=== PATIENT | male | born 1955 | race Hispanic/Latino ===

== ENCOUNTER 2016-12-09 08:35 | Inpatient (IN) | payer MEDICARE ==
[2016-12-09] MEDS ORDERED: ATIVAN ONE (08:51)
[2016-12-09] MEDS ORDERED: KEPPRA 1,000 MG/NS 0.75% 100ML 1,000 MG/100 ML BAG IV ONE ×2 (09:07→09:30)
[2016-12-09] MEDS ORDERED: NACL 0.9% 1000 ML 1,000 ML ONE ×2 (09:12→12:06)
[2016-12-09] MEDS ORDERED: ATIVAN IV ONE (09:15)
[2016-12-09] MEDS ORDERED: NACL 0.9% 1000 ML 1,000 ML IV ONE ×2 (09:30→11:12)
--- NOTE | 2016-12-09 10:09 | XRay Report ---
AP CHEST: HISTORY: Hypertension AP view of the chest demonstrates a normal mediastinal and cardiac contour with clear lungs and normal bony and soft tissue structures. No significant change since 08/17/16. IMPRESSION: Unremarkable AP chest.
--- NOTE | 2016-12-09 10:32 | Cat Scan Report ---
CT HEAD WITHOUT CONTRAST: HISTORY: Recurrent seizure. Chronic cortical infarct in the right posterior temporal lobe measures 2.5 x 2.5 cm. The remaining brain parenchyma demonstrates normal attenuation. The whaley-white interface is unremarkable. No evidence for hemorrhage, mass or hydrocephalus. The mastoid air cells and visualized portions of the sinuses are normal. IMPRESSION: No acute intracranial process. Chronic infarct in the right temporal lobe.
[2016-12-09 10:35] LABS: Basophils % (Auto) 0.4 % (0.0-1.8); Eosinophils % (Auto) 0.2 % (0.0-4.3); Hematocrit 49.4 % (35.5-45.6); Hemoglobin 16.6 gm/dl (11.8-15.2); Mean Corpuscular HGB Conc 34 % (32-34); Mean Corpuscular Hemoglobin 31 pg (28-32); Mean Corpuscular Volume 91 fl (84-94); Platelet Count 172 K/mm3 (140-440); Red Cell Distribution Width 14.5 % (13.2-15.2)
[2016-12-09 10:38] LABS: Alanine Aminotransferase 17 units/L (7-56); Albumin 4.8 g/dL (3.9-5); Albumin/Globulin Ratio 1.4 %; Alkaline Phosphatase 103 units/L (35-129); Anion Gap 29 mmol/L; BUN/Creatinine Ratio 14.61; Blood Urea Nitrogen 19 mg/dL (9-20); Carbon Dioxide 15 mmol/L (22-30); Chloride 99.6 mmol/L (98-107); Glucose 123 mg/dL (75-100); Potassium 4.4 mmol/L (3.6-5.0); Sodium 139 mmol/L (137-145); Total Protein 8.3 g/dL (6.3-8.2)
--- NOTE | 2016-12-09 10:43 | Emergency Department Report ---
ED Seizure HPI - General Chief Complaint: Seizure Stated Complaint: SEIZURES Time Seen by Provider: 12/09/16 09:29 Source: family, EMS Mode of arrival: Stretcher Limitations: No Limitations - History of Present Illness Initial Comments: The patient had a seizure at home. He is currently on Keppra 750 mg twice a day according to his previous reconciliation. His compliance is unknown. [facility] he had an additional seizure. He was given a milligram of Ativan IV prior to my arrival. On my initial encounter he is lethargic but arousable. He is able to tell me his name. His blood pressure was somewhat low and his heart rate was in the 130s (sinus tachycardia). His pulse oximetry was well maintained and he was managing his airway fine. The patient presents with a family member who states that he had a case of the "swine flu" and was hospitalized for 26 days. She denies any ongoing liver or kidney problem. He does have a history of prior seizures as above. He has not recently been ill to her knowledge nor febrile. MD Complaint: seizure -: Sudden Description of Episode: loss of consciousness, tonic-clonic movement -: minutes(s) Witnessed:: Yes Trauma: No (family member states the patient was held during the seizure and did not soto) Seizure History: known seizure disorder Place: home, other (and again here) Possible Precipitating Event: other (none known) Associated Symptoms: denies other symptoms (not per family) - Related Data Home Medications Medication Instructions Recorded Confirmed Last Taken cloNIDine [Catapres] 0.1 mg PO BID 08/21/14 08/17/16 12/06/14 0.1 MG levETIRAcetam [Keppra TAB] 750 mg PO BID 08/21/14 08/17/16 12/06/14 500 MG Terazosin HCl 5 mg PO HS 08/17/16 08/17/16 Unknown traZODone [Desyrel] 2 tab PO HS 08/17/16 08/17/16 Unknown Previous Rx's Medication Instructions Recorded Last Taken Type Aspirin [Aspirin BABY CHEW TAB] 81 mg PO QDAY #30 tab.chew 08/18/16 Unknown Rx Allergies Allergy/AdvReac Type Severity Reaction Status Date / Time haloperidol [From Haldol] Allergy Unknown Verified 12/09/16 09:16 haloperidol lactate Allergy Unknown Verified 12/09/16 09:16 [From Haldol] levofloxacin [From Levaquin] Allergy Unknown Verified 12/09/16 09:16 quetiapine fumarate Allergy Unknown Verified 12/09/16 09:16 [From Seroquel] Penicillins AdvReac Hives Verified 12/09/16 09:16 ED Review of Systems ROS: Stated complaint: SEIZURES Other details as noted in HPI Comment: Unobtainable due to pts medical conditions ED Past Medical Hx - Past Medical History Previous Medical History?: Yes Hx Hypertension: Yes (2009) Hx CVA: Yes (2011) Hx Congestive Heart Failure: No Hx Diabetes: No Hx Renal Disease: Yes (Prostate) Hx Arthritis: Yes (BACK, NECK SHOULDER) Hx Seizures: Yes (2009, PER PATIENT LAST WAS 2009) Hx Kidney Stones: Yes (X6 OCCURANCES) Hx Asthma: No Hx COPD: No Additional medical history: Chronic back pain, pressure ulcer on left heel, torn tendons in right shoulder. - Surgical History Past Surgical History?: Yes Additional Surgical History: Back surgeries (C5,6,&7), hernia repair, orchiectomy, spinal stimulator with subsequent removal. - Social History Smoking Status: Current Every Day Smoker Substance Use Type: None - Medications Home Medications: Home Medications Medication Instructions Recorded Confirmed Last Taken Type cloNIDine [Catapres] 0.1 mg PO BID 08/21/14 08/17/16 12/06/14 History 0.1 MG levETIRAcetam [Keppra TAB] 750 mg PO BID 08/21/14 08/17/16 12/06/14 History 500 MG Terazosin HCl 5 mg PO HS 08/17/16 08/17/16 Unknown History traZODone [Desyrel] 2 tab PO HS 08/17/16 08/17/16 Unknown History Aspirin [Aspirin BABY CHEW TAB] 81 mg PO QDAY #30 tab.chew 08/18/16 Unknown Rx ED Physical Exam - General Limitations: Altered Mental Status General appearance: alert, in no apparent distress, lethargic, postictal - Head Head exam: Present: atraumatic, normocephalic - Eye Eye exam: Present: normal appearance, PERRL, EOMI. Absent: scleral icterus - ENT ENT exam: Present: normal exam, mucous membranes moist - Neck Neck exam: Present: normal inspection. Absent: tenderness, meningismus - Respiratory Respiratory exam: Present: normal lung sounds bilaterally. Absent: respiratory distress - Cardiovascular Cardiovascular Exam: Present: normal rhythm, tachycardia. Absent: systolic murmur, diastolic murmur, rubs, gallop - GI/Abdominal GI/Abdominal exam: Present: soft, normal bowel sounds. Absent: distended, tenderness, guarding, rebound - Rectal Rectal exam: Present: deferred - Extremities Exam Extremities exam: Present: normal inspection - Back Exam Back exam: Present: normal inspection - Neurological Exam Neurological exam: Present: alert, oriented X3, CN II-XII intact. Absent: motor sensory deficit - Psychiatric Psychiatric exam: Present: normal affect, normal mood - Skin Skin exam: Present: warm, dry, intact, normal color. Absent: rash ED Course Vital Signs 12/09/16 12/09/16 09:04 09:17 Temperature 98.1 F 98.1 F Pulse Rate 133 H 133 H Respiratory 16 16 Rate Blood Pressure 87/53 Blood Pressure 87/53 [Left] O2 Sat by Pulse 98 97 Oximetry - Reevaluation(s) Reevaluation #1: Patient was given IV fluids with improvement of his blood pressure and heart rate. He became more arousable. He managed his airway fine. 12/09/16 11:12 12/09/16 11:13 The patient was noted to have lactic acidosis increased anion gap. This is presumed to be secondary to his seizures but blood cultures were obtained. I discussed this with the hospitalist Dr. Velasco. He is clinically improved. Personally I do not think he yet meets criteria for empiric antibiotics. I will order a repeat lactic acid level now to verify this. A chest x-ray and CT of the head showed nothing acute. Patient will be admitted to telemetry for further care and management by the hospitalist service. ED Medical Decision Making - Lab Data Result diagrams: 12/09/16 09:52 12/09/16 09:52 Laboratory Results - last 24 hr 12/09/16 12/09/16 12/09/16 09:52 09:52 09:52 WBC 10.0 RBC 5.40 H Hgb 16.6 H Hct 49.4 H MCV 91 MCH 31 MCHC 34 RDW 14.5 Plt Count 172 Lymph % (Auto) 5.7 L [place] % (Auto) 5.6 Eos % (Auto) 0.2 Baso % (Auto) 0.4 Lymph # 0.6 L [place] # 0.6 Eos # 0.0 Baso # 0.0 Seg Neutrophils % 88.1 H Seg Neutrophils # 8.8 H Carbon Dioxide 15 L BUN 19 Creatinine 1.3 Estimated GFR 57 BUN/Creatinine Ratio 14.61 Glucose 123 H Calcium 9.0 Total Bilirubin 0.70 ALT 17 Alkaline Phosphatase 103 Ammonia 73.0 H Total Protein 8.3 H Albumin 4.8 Albumin/Globulin Ratio 1.4 NA 130 K 4.4 CL 99.6 AG 29 LA 8.5 - EKG Data -: EKG Interpreted by Me EKG shows normal: sinus rhythm, axis, intervals, QRS complexes, ST-T waves Rate: tachycardia - EKG Data Interpretation: no acute changes - Radiology Data Radiology results: report reviewed interpreted by me: Previous chronic left temporal infarct. No acute process. Chest x-ray no acute process. Critical Care Time: Yes Critical care time in (mins) excluding proc time.: 40 Critical care attestation.: If time is entered above; I have spent that time in minutes in the direct care of this critically ill patient, excluding procedure time. ED Disposition Clinical Impression: Recurrent seizures, Hypotensive episode, Lactic acidosis Disposition: DC-09 OP ADMIT IP TO THIS HOSP Is pt being admited?: Yes Does the pt Need Aspirin: Yes Condition: Stable Referrals: PRIMARY CARE, [Primary Care Provider] - 3-5 Days Time of Disposition: 11:17
[2016-12-09 10:48] LABS: Bilirubin,Direct < 0.2 mg/dL (0-0.2)
[2016-12-09] MEDS ORDERED: BABY ASPIRIN PO ONE (11:18)
--- NOTE | 2016-12-09 12:24 | History and Physical Report ---
History of Present Illness Date of examination: 12/09/16 Date of admission: 12/09/16 11:35 Chief complaint: sz History of present illness: This is a 61-year-old male who presents to the emergency department with a known seizure disorder status post seizure 2. Patient reportedly had a seizure at home and later developed a second seizure in the emergency room. Patient is somewhat lethargic and postictal. Therefore, most of the history was obtained from the ER record. Patient reportedly was given Ativan as well. Past History Past Medical History: seizures Past Surgical History: Other (neck, rotator cuff surgery, fluid, continue, testicle removal) Social history: other (unable to be obtained due to mental status) Family history: other (unable to be obtained due to mental status) Medications and Allergies Allergies Allergy/AdvReac Type Severity Reaction Status Date / Time haloperidol [From Haldol] Allergy Unknown Verified 12/09/16 09:16 haloperidol lactate Allergy Unknown Verified 12/09/16 09:16 [From Haldol] levofloxacin [From Levaquin] Allergy Unknown Verified 12/09/16 09:16 quetiapine fumarate Allergy Unknown Verified 12/09/16 09:16 [From Seroquel] Penicillins AdvReac Hives Verified 12/09/16 09:16 Home Medications Medication Instructions Recorded Confirmed Last Taken Type cloNIDine [Catapres] 0.1 mg PO BID 08/21/14 08/17/16 12/06/14 History 0.1 MG levETIRAcetam [Keppra TAB] 750 mg PO BID 08/21/14 08/17/16 12/06/14 History 500 MG Terazosin HCl 5 mg PO HS 08/17/16 08/17/16 Unknown History traZODone [Desyrel] 2 tab PO HS 08/17/16 08/17/16 Unknown History Aspirin [Aspirin BABY CHEW TAB] 81 mg PO QDAY #30 tab.chew 08/18/16 Unknown Rx Review of Systems ROS unobtainable: due to mental status Exam - Constitutional Vitals: Temp Pulse Resp BP Pulse Ox 98.1 F 102 H 16 123/84 97 12/09/16 09:17 12/09/16 11:52 12/09/16 11:52 12/09/16 11:52 12/09/16 11:52 General appearance: Present: no acute distress, well-nourished - EENT Eyes: Present: PERRL ENT: hearing intact, clear oral mucosa - Neck Neck: Present: supple, normal ROM - Respiratory Respiratory effort: normal Respiratory: bilateral: CTA - Cardiovascular Heart Sounds: Present: S1 & S2. Absent: rub, click - Extremities Extremities: pulses symmetrical, No edema Peripheral Pulses: within normal limits - Abdominal General gastrointestinal: Present: soft, non-tender, non-distended, normal bowel sounds Male genitourinary: Present: normal - Integumentary Integumentary: Present: clear, warm, dry - Musculoskeletal Musculoskeletal: gait normal, strength equal bilaterally - Psychiatric Psychiatric: appropriate mood/affect, intact judgment & insight - Neurologic Neurologic: CNII-XII intact, moves all extremities Results - Labs CBC & Chem 7: 12/09/16 09:52 12/09/16 09:52 Labs: Laboratory Last Values WBC 10.0 K/mm3 (4.5-11.0) 12/09/16 09:52 RBC 5.40 M/mm3 (3.65-5.03) H 12/09/16 09:52 Hgb 16.6 gm/dl (11.8-15.2) H 12/09/16 09:52 Hct 49.4 % (35.5-45.6) H 12/09/16 09:52 MCV 91 fl (84-94) 12/09/16 09:52 MCH 31 pg (28-32) 12/09/16 09:52 MCHC 34 % (32-34) 12/09/16 09:52 RDW 14.5 % (13.2-15.2) 12/09/16 09:52 Plt Count 172 K/mm3 (140-440) 12/09/16 09:52 Lymph % (Auto) 5.7 % (13.4-35.0) L 12/09/16 09:52 [place] % (Auto) 5.6 % (0.0-7.3) 12/09/16 09:52 Eos % (Auto) 0.2 % (0.0-4.3) 12/09/16 09:52 Baso % (Auto) 0.4 % (0.0-1.8) 12/09/16 09:52 Lymph # 0.6 K/mm3 (1.2-5.4) L 12/09/16 09:52 [place] # 0.6 K/mm3 (0.0-0.8) 12/09/16 09:52 Eos # 0.0 K/mm3 (0.0-0.4) 12/09/16 09:52 Baso # 0.0 K/mm3 (0.0-0.1) 12/09/16 09:52 Seg Neutrophils % 88.1 % (40.0-70.0) H 12/09/16 09:52 Seg Neutrophils # 8.8 K/mm3 (1.8-7.7) H 12/09/16 09:52 Carbon Dioxide 15 mmol/L (22-30) L 12/09/16 09:52 BUN 19 mg/dL (9-20) 12/09/16 09:52 Creatinine 1.3 mg/dL (0.8-1.5) 12/09/16 09:52 Estimated GFR 57 ml/min 12/09/16 09:52 BUN/Creatinine Ratio 14.61 % 12/09/16 09:52 Glucose 123 mg/dL (75-100) H 12/09/16 09:52 Lactic Acid 8.50 mmol/L (0.7-2.0) H* 12/09/16 09:52 Calcium 9.0 mg/dL (8.4-10.2) 12/09/16 09:52 Total Bilirubin 0.70 mg/dL (0.1-1.2) 12/09/16 09:52 Direct Bilirubin < 0.2 mg/dL (0-0.2) 12/09/16 09:52 AST 17 units/L (5-40) 12/09/16 09:52 ALT 17 units/L (7-56) 12/09/16 09:52 Alkaline Phosphatase 103 units/L (35-129) 12/09/16 09:52 Ammonia 73.0 umol/L (25-60) H 12/09/16 09:52 Troponin T < 0.010 ng/mL (0.00-0.029) 12/09/16 09:52 NT-Pro-B Natriuret Pep 155.2 pg/mL (0-900) 12/09/16 09:52 Total Protein 8.3 g/dL (6.3-8.2) H 12/09/16 09:52 Albumin 4.8 g/dL (3.9-5) 12/09/16 09:52 Albumin/Globulin Ratio 1.4 % 12/09/16 09:52 Plasma/Serum Alcohol < 0.01 gm% (0-0.07) 12/09/16 09:52 Assessment and Plan Assessment and plan: Seizure disorder. Continue seizure precautions. Check EEG. Neurology consultation. Continue IV Keppra. Elevated lactic acid level. ? Lab error. Follow-up repeat lactic acid level. Etiology may also be secondary to #1. There appears to be no evidence of infectious etiology.
[2016-12-09] MEDS ORDERED: MILK OF MAGNESIA PO PRN (12:25)
[2016-12-09] MEDS ORDERED: DULCOLAX PR PRN (12:25)
[2016-12-09] MEDS ORDERED: ZOFRAN IV PRN (12:25)
[2016-12-09 14:48] LABS: Urine Drugs of Abuse Note Disclamer
[2016-12-09 15:08] LABS: Bilirubin,Urine NEG (Negative); Blood,Urine SM (Negative); Ketones,Urine NEG (Negative); Leukocyte Esterase,Urine NEG (Negative); Mucus,Urine FEW /HPF; Nitrite,Urine NEG (Negative); Urobilinogen,Urine < 2.0 mg/dL (<2.0)
[2016-12-09] MEDS: TYLENOL PO PRN (23:17)
--- NOTE | 2016-12-10 02:47 | Admit Criteria Form ---
Admission Criteria Documentation: SEIZURE Clinical Indications for Admission to Inpatient Care (Place 'X' for any and all applicable criteria): Admission is indicated for seizure and ANY ONE of the following(1)(2)(3)(4)(5): [ X]I. Inpatient admission required rather than observation care (Also use Seizure: Observation Care Criteria as appropriate) because of ANY ONE of the following: [ ]a) Altered mental status that is severe or persistent [ ]b) New focal neurologic deficit that is severe or persistent [ ]c) Metabolic disorder (eg, hypoglycemia, hyponatremia) that is severe or persistent [ X]d) Recurrent seizure [ ]e) Outpatient antiseizure regimen cannot be established (eg , patient cannot tolerate medication, initiation requires inpatient care) [ ]f) Need for ongoing intravenous infusion of antiseizure medication [ ]g) Cardiac arrhythmias of immediate concern [ ]h) Cerebral bleeding, hydrocephalus, or vasospasm monitoring (14) [ ]i) Increased intracranial pressure or cerebral edema monitoring (15) [ ]j) Other treatment or monitoring requiring inpatient admission [ ]II. Status epilepticus [A] or repetitive seizures not controlled with emergent treatment (6)(8) [ ]III. Brain disorder (eg, tumor, edema, and hydrocephalus) that requiring monitoring or intervention available only at inpatient level of care. [ ]IV. Brain insult (eg, severe trauma, stroke, drug toxicity, or withdrawal) that requires monitoring or intervention available only at inpatient level of care (10)(11) Extended stay beyond goal length of stay may be needed for (22) [ ]a) Complications of status epilepticus [ ]b) Refractory status epilepticus [ ]c) Etiology-specific therapy for conditions such as [employer] infection, head injury,eclampsia, severe metabolic abnormalities, and brain tumor [ ]d) Residual neurologic damage, [ ]e) Initiation of significant change to anticonvulsant treatment [ ]f) Older patients (65 years or older) [ ]g) Patient requiring intubation (eg, to protect airway) The original [facility] content created by [employer] has been revised. The portions of the content which have been revised are identified through the use of italic text or in bold, and [facility] [employer] has neither reviewed nor approved the modified material. All other unmodified content is copyright [facility] [employer]. Please see references footnoted in the original [facility] edition 2016 Admission Criteria Met: Yes
[2016-12-10] MEDS: ATIVAN IV PRN ×2 (05:06→16:05)
[2016-12-10] MEDS: TYLENOL PO PRN (05:15)
[2016-12-10 05:49] LABS: Basophils % (Auto) 0.4 % (0.0-1.8); Eosinophils % (Auto) 1.3 % (0.0-4.3); Hematocrit 43.8 % (35.5-45.6); Hemoglobin 14.9 gm/dl (11.8-15.2); Mean Corpuscular HGB Conc 34 % (32-34); Mean Corpuscular Hemoglobin 31 pg (28-32); Mean Corpuscular Volume 91 fl (84-94); Platelet Count 150 K/mm3 (140-440); Red Blood Count 4.83 M/mm3 (3.65-5.03); Red Cell Distribution Width 14.6 % (13.2-15.2); White Blood Count 10.3 K/mm3 (4.5-11.0)
[2016-12-10 06:10] LABS: Anion Gap 21 mmol/L; BUN/Creatinine Ratio 18.18; Blood Urea Nitrogen 20 mg/dL (9-20); Calcium 8.5 mg/dL (8.4-10.2); Carbon Dioxide 19 mmol/L (22-30); Chloride 105.6 mmol/L (98-107); Glucose 107 mg/dL (75-100); Sodium 142 mmol/L (137-145)
[2016-12-10 06:11] LABS: Potassium 3.5 mmol/L (3.6-5.0)
[2016-12-10] MEDS: LOVENOX SUB-Q SCH (09:47)
--- NOTE | 2016-12-10 12:34 | Progress Note ---
Assessment and Plan Assessment and plan: Seizure disorder. Continue seizure precautions. Check EEG. Neurology consultation. Continue IV Keppra. Check Keppra level. Elevated lactic acid level. ? Lab error. Follow-up repeat lactic acid level. Etiology may also be secondary to #1. There appears to be no evidence of infectious etiology. Encephalopathy. Etiology may be secondary to #1. Rule out other etiologies such as infection. Blood cultures appear to be negative. Check TSH and ammonia levels. Patient unable to undergo MRI due to hardware from previous back and neck surgeries. History Interval history: No new issues overnight. Hospitalist Physical - Constitutional Vitals: Temp Pulse Resp BP Pulse Ox 99.1 F 114 H 18 125/76 93 12/10/16 11:56 12/10/16 11:56 12/10/16 11:56 12/10/16 11:56 12/10/16 11:56 General appearance: Present: no acute distress, well-nourished - EENT Eyes: Present: PERRL, EOM intact ENT: hearing intact, clear oral mucosa, dentition normal - Neck Neck: Present: supple, normal ROM - Respiratory Respiratory effort: normal Respiratory: bilateral: CTA - Cardiovascular Rhythm: regular Heart Sounds: Present: S1 & S2. Absent: gallop, rub - Extremities Extremities: no ischemia, No edema, Full ROM - Abdominal General gastrointestinal: soft, non-tender, non-distended, normal bowel sounds - Integumentary Integumentary: Present: clear, warm, dry - Neurologic Neurologic: CNII-XII intact, moves all extremities Results - Labs CBC & Chem 7: 12/10/16 05:24 12/10/16 05:24 Labs: Laboratory Last Values WBC 10.3 K/mm3 (4.5-11.0) 12/10/16 05:24 RBC 4.83 M/mm3 (3.65-5.03) 12/10/16 05:24 Hgb 14.9 gm/dl (11.8-15.2) 12/10/16 05:24 Hct 43.8 % (35.5-45.6) 12/10/16 05:24 MCV 91 fl (84-94) 12/10/16 05:24 MCH 31 pg (28-32) 12/10/16 05:24 MCHC 34 % (32-34) 12/10/16 05:24 RDW 14.6 % (13.2-15.2) 12/10/16 05:24 Plt Count 150 K/mm3 (140-440) 12/10/16 05:24 Lymph % (Auto) 13.5 % (13.4-35.0) 12/10/16 05:24 [place] % (Auto) 9.6 % (0.0-7.3) H 12/10/16 05:24 Eos % (Auto) 1.3 % (0.0-4.3) 12/10/16 05:24 Baso % (Auto) 0.4 % (0.0-1.8) 12/10/16 05:24 Lymph # 1.4 K/mm3 (1.2-5.4) 12/10/16 05:24 Major # 1.0 K/mm3 (0.0-0.8) H 12/10/16 05:24 Eos # 0.1 K/mm3 (0.0-0.4) 12/10/16 05:24 Baso # 0.0 K/mm3 (0.0-0.1) 12/10/16 05:24 Seg Neutrophils % 75.2 % (40.0-70.0) H 12/10/16 05:24 Seg Neutrophils # 7.8 K/mm3 (1.8-7.7) H 12/10/16 05:24 Sodium 142 mmol/L (137-145) 12/10/16 05:24 Potassium 3.5 mmol/L (3.6-5.0) L D 12/10/16 05:24 Chloride 105.6 mmol/L (98-107) 12/10/16 05:24 Carbon Dioxide 19 mmol/L (22-30) L 12/10/16 05:24 Anion Gap 21 mmol/L 12/10/16 05:24 BUN 20 mg/dL (9-20) 12/10/16 05:24 Creatinine 1.1 mg/dL (0.8-1.5) 12/10/16 05:24 Estimated GFR > 60 ml/min 12/10/16 05:24 BUN/Creatinine Ratio 18.18 % 12/10/16 05:24 Glucose 107 mg/dL (75-100) H 12/10/16 05:24 POC Glucose 112 (70-105) H 12/09/16 11:56 Lactic Acid 2.00 mmol/L (0.7-2.0) 12/09/16 12:56 Calcium 8.5 mg/dL (8.4-10.2) 12/10/16 05:24 Magnesium 1.80 mg/dL (1.7-2.3) 12/09/16 09:52 Total Bilirubin 0.70 mg/dL (0.1-1.2) 12/09/16 09:52 Direct Bilirubin < 0.2 mg/dL (0-0.2) 12/09/16 09:52 AST 17 units/L (5-40) 12/09/16 09:52 ALT 17 units/L (7-56) 12/09/16 09:52 Alkaline Phosphatase 103 units/L (35-129) 12/09/16 09:52 Ammonia 73.0 umol/L (25-60) H 12/09/16 09:52 Troponin T < 0.010 ng/mL (0.00-0.029) 12/09/16 09:52 NT-Pro-B Natriuret Pep 155.2 pg/mL (0-900) 12/09/16 09:52 Total Protein 8.3 g/dL (6.3-8.2) H 12/09/16 09:52 Albumin 4.8 g/dL (3.9-5) 12/09/16 09:52 Albumin/Globulin Ratio 1.4 % 12/09/16 09:52 Urine Color Yellow (Yellow) 12/09/16 14:20 Urine Turbidity Clear (Clear) 12/09/16 14:20 Urine pH 5.0 (5.0-7.0) 12/09/16 14:20 Ur Specific [place] 1.010 (1.003-1.030) 12/09/16 14:20 Urine Protein 30 mg/dl mg/dL (Negative) 12/09/16 14:20 Urine Glucose (UA) Neg mg/dL (Negative) 12/09/16 14:20 Urine Ketones Neg mg/dL (Negative) 12/09/16 14:20 Urine Blood Sm (Negative) 12/09/16 14:20 Urine Nitrite Neg (Negative) 12/09/16 14:20 Urine Bilirubin Neg (Negative) 12/09/16 14:20 Urine Urobilinogen < 2.0 mg/dL (<2.0) 12/09/16 14:20 Ur Leukocyte Esterase Neg (Negative) 12/09/16 14:20 Urine WBC (Auto) 2.0 /HPF (0.0-6.0) 12/09/16 14:20 Urine RBC (Auto) 5.0 /HPF (0.0-6.0) 12/09/16 14:20 U Epithel Cells (Auto) < 1.0 /HPF (0-13.0) 12/09/16 14:20 Urine Mucus Few /HPF 12/09/16 14:20 Urine Opiates Screen Presumptive negative 12/09/16 14:20 Urine Methadone Screen Presumptive negative 12/09/16 14:20 Ur Barbiturates Screen Presumptive negative 12/09/16 14:20 Ur Phencyclidine Scrn Presumptive negative 12/09/16 14:20 Ur Amphetamines Screen Presumptive negative 12/09/16 14:20 U Benzodiazepines Scrn Presumptive negative 12/09/16 14:20 Urine Cocaine Screen Presumptive negative 12/09/16 14:20 U Marijuana (THC) Screen Presumptive negative 12/09/16 14:20 Drugs of Abuse Note Disclamer 12/09/16 14:20 Plasma/Serum Alcohol < 0.01 gm% (0-0.07) 12/09/16 09:52
[2016-12-10] MEDS ORDERED: NON-FORMULARY (Terazosin Hcl [Terazosin Hcl] 5 MG) PO SCH (22:00)
[2016-12-10] MEDS: MINIPRESS PO SCH (22:03)
[2016-12-10] MEDS: KEPPRA 750 MG in D5W 100 ML IV SCH (22:11)
[2016-12-10] MEDS: CATAPRES PO SCH (22:30)
[2016-12-10] MEDS: DESYREL PO SCH (22:30)
[2016-12-11] MEDS: LOVENOX SUB-Q SCH (10:15)
[2016-12-11] MEDS: KEPPRA 750 MG in D5W 100 ML IV SCH (10:16)
[2016-12-11] MEDS: MINIPRESS PO SCH ×2 (10:17→21:04)
[2016-12-11] MEDS: CATAPRES PO SCH ×2 (10:17→23:00)
[2016-12-11] MEDS: BABY ASPIRIN PO SCH (10:17)
--- NOTE | 2016-12-11 11:30 | Progress Note ---
Assessment and Plan Assessment and plan: Seizure disorder. Continue seizure precautions. Check EEG. Neurology consultation. Continue IV Keppra. Check Keppra level. Elevated lactic acid level. ? Lab error. Follow-up repeat lactic acid level. Etiology may also be secondary to #1. There appears to be no evidence of infectious etiology. Urine and blood cultures are negative thus far. Encephalopathy. Etiology may be secondary to #1. Rule out other etiologies such as infection. Blood cultures appear to be negative. Check TSH and ammonia levels. Patient unable to undergo MRI due to hardware from previous back and neck surgeries. Hypertension. Continue clonidine and terazosin Presyncope. Check carotid ultrasound and orthostatic vital signs.. History Interval history: No new issues overnight. Patient appears to be less confused this morning. Mother at bedside. Patient also complains of dizziness when sitting up in bed. Hospitalist Physical - Constitutional Vitals: Temp Pulse Resp BP Pulse Ox 97.9 F 91 H 20 129/89 97 12/11/16 08:00 12/11/16 08:00 12/11/16 08:00 12/11/16 08:00 12/11/16 08:00 General appearance: Present: no acute distress, well-nourished - EENT Eyes: Present: PERRL, EOM intact ENT: hearing intact, clear oral mucosa, dentition normal - Neck Neck: Present: supple, normal ROM - Respiratory Respiratory effort: normal Respiratory: bilateral: CTA - Cardiovascular Rhythm: regular Heart Sounds: Present: S1 & S2. Absent: gallop, rub - Extremities Extremities: no ischemia, No edema, Full ROM - Abdominal General gastrointestinal: soft, non-tender, non-distended, normal bowel sounds - Integumentary Integumentary: Present: clear, warm, dry - Neurologic Neurologic: CNII-XII intact, moves all extremities Results - Labs CBC & Chem 7: 12/10/16 05:24 12/10/16 05:24 Labs: Laboratory Last Values WBC 10.3 K/mm3 (4.5-11.0) 12/10/16 05:24 RBC 4.83 M/mm3 (3.65-5.03) 12/10/16 05:24 Hgb 14.9 gm/dl (11.8-15.2) 12/10/16 05:24 Hct 43.8 % (35.5-45.6) 12/10/16 05:24 MCV 91 fl (84-94) 12/10/16 05:24 MCH 31 pg (28-32) 12/10/16 05:24 MCHC 34 % (32-34) 12/10/16 05:24 RDW 14.6 % (13.2-15.2) 12/10/16 05:24 Plt Count 150 K/mm3 (140-440) 12/10/16 05:24 Lymph % (Auto) 13.5 % (13.4-35.0) 12/10/16 05:24 [place] % (Auto) 9.6 % (0.0-7.3) H 12/10/16 05:24 Eos % (Auto) 1.3 % (0.0-4.3) 12/10/16 05:24 Baso % (Auto) 0.4 % (0.0-1.8) 12/10/16 05:24 Lymph # 1.4 K/mm3 (1.2-5.4) 12/10/16 05:24 [place] # 1.0 K/mm3 (0.0-0.8) H 12/10/16 05:24 Eos # 0.1 K/mm3 (0.0-0.4) 12/10/16 05:24 Baso # 0.0 K/mm3 (0.0-0.1) 12/10/16 05:24 Seg Neutrophils % 75.2 % (40.0-70.0) H 12/10/16 05:24 Seg Neutrophils # 7.8 K/mm3 (1.8-7.7) H 12/10/16 05:24 Sodium 142 mmol/L (137-145) 12/10/16 05:24 Potassium 3.5 mmol/L (3.6-5.0) L D 12/10/16 05:24 Chloride 105.6 mmol/L (98-107) 12/10/16 05:24 Carbon Dioxide 19 mmol/L (22-30) L 12/10/16 05:24 Anion Gap 21 mmol/L 12/10/16 05:24 BUN 20 mg/dL (9-20) 12/10/16 05:24 Creatinine 1.1 mg/dL (0.8-1.5) 12/10/16 05:24 Estimated GFR > 60 ml/min 12/10/16 05:24 BUN/Creatinine Ratio 18.18 % 12/10/16 05:24 Glucose 107 mg/dL (75-100) H 12/10/16 05:24 POC Glucose 112 (70-105) H 12/09/16 11:56 Lactic Acid 2.00 mmol/L (0.7-2.0) 12/09/16 12:56 Calcium 8.5 mg/dL (8.4-10.2) 12/10/16 05:24 Magnesium 1.80 mg/dL (1.7-2.3) 12/09/16 09:52 Total Bilirubin 0.70 mg/dL (0.1-1.2) 12/09/16 09:52 Direct Bilirubin < 0.2 mg/dL (0-0.2) 12/09/16 09:52 AST 17 units/L (5-40) 12/09/16 09:52 ALT 17 units/L (7-56) 12/09/16 09:52 Alkaline Phosphatase 103 units/L (35-129) 12/09/16 09:52 Ammonia 43.0 umol/L (25-60) 12/10/16 13:17 Troponin T < 0.010 ng/mL (0.00-0.029) 12/09/16 09:52 NT-Pro-B Natriuret Pep 155.2 pg/mL (0-900) 12/09/16 09:52 Total Protein 8.3 g/dL (6.3-8.2) H 12/09/16 09:52 Albumin 4.8 g/dL (3.9-5) 12/09/16 09:52 Albumin/Globulin Ratio 1.4 % 12/09/16 09:52 TSH 3.350 mlU/mL (0.270-4.200) 12/10/16 13:17 Urine Color Yellow (Yellow) 12/09/16 14:20 Urine Turbidity Clear (Clear) 12/09/16 14:20 Urine pH 5.0 (5.0-7.0) 12/09/16 14:20 Ur Specific [place] 1.010 (1.003-1.030) 12/09/16 14:20 Urine Protein 30 mg/dl mg/dL (Negative) 12/09/16 14:20 Urine Glucose (UA) Neg mg/dL (Negative) 12/09/16 14:20 Urine Ketones Neg mg/dL (Negative) 12/09/16 14:20 Urine Blood Sm (Negative) 12/09/16 14:20 Urine Nitrite Neg (Negative) 12/09/16 14:20 Urine Bilirubin Neg (Negative) 12/09/16 14:20 Urine Urobilinogen < 2.0 mg/dL (<2.0) 12/09/16 14:20 Ur Leukocyte Esterase Neg (Negative) 12/09/16 14:20 Urine WBC (Auto) 2.0 /HPF (0.0-6.0) 12/09/16 14:20 Urine RBC (Auto) 5.0 /HPF (0.0-6.0) 12/09/16 14:20 U Epithel Cells (Auto) < 1.0 /HPF (0-13.0) 12/09/16 14:20 Urine Mucus Few /HPF 12/09/16 14:20 Urine Opiates Screen Presumptive negative 12/09/16 14:20 Urine Methadone Screen Presumptive negative 12/09/16 14:20 Ur Barbiturates Screen Presumptive negative 12/09/16 14:20 Ur Phencyclidine Scrn Presumptive negative 12/09/16 14:20 Ur Amphetamines Screen Presumptive negative 12/09/16 14:20 U Benzodiazepines Scrn Presumptive negative 12/09/16 14:20 Urine Cocaine Screen Presumptive negative 12/09/16 14:20 U Marijuana (THC) Screen Presumptive negative 12/09/16 14:20 Drugs of Abuse Note Disclamer 12/09/16 14:20 Plasma/Serum Alcohol < 0.01 gm% (0-0.07) 12/09/16 09:52
--- NOTE | 2016-12-11 11:42 | Consultation ---
History of Present Illness Consult date: 12/11/16 Requesting physician: MARIELA SANTO Reason for Consult: seizure Chief complaint: seizure History of present illness: 61 YO M hx epilepsy since prolonged coma in 2008 for swine flu/PNA/sepsis on LEV 750mg BID compliant and stroke 2011 w/ residual faint L sided weakness p/w breakthrough GTC on 7 AM and recurrent in ED. Sz lasted ? 1-2 mins. There were no clear aggravating, relieving or temporal factors. Severity was enough to cause LOC and residual confusion which has improved. Past History Past Medical History: seizures, stroke Past Surgical History: Other (neck, rotator cuff surgery, fluid, continue, testicle removal) Social history: lives with family. denies: smoking, alcohol abuse Family history: hypertension Medications and Allergies Allergies Allergy/AdvReac Type Severity Reaction Status Date / Time haloperidol [From Haldol] Allergy Unknown Verified 12/09/16 09:16 haloperidol lactate Allergy Unknown Verified 12/09/16 09:16 [From Haldol] levofloxacin [From Levaquin] Allergy Unknown Verified 12/09/16 09:16 quetiapine fumarate Allergy Unknown Verified 12/09/16 09:16 [From Seroquel] Penicillins AdvReac Hives Verified 12/09/16 09:16 Home Medications Medication Instructions Recorded Confirmed Last Taken Type cloNIDine [Catapres] 0.1 mg PO BID 08/21/14 12/10/16 1 Day Ago History .1 levETIRAcetam [Keppra TAB] 750 mg PO BID 08/21/14 12/10/16 1 Day Ago History 750 Terazosin HCl 5 mg PO HS 08/17/16 12/10/16 1 Day Ago History 5mg traZODone [Desyrel] 2 tab PO HS 08/17/16 12/10/16 Unknown History Aspirin [Aspirin BABY CHEW TAB] 81 mg PO QDAY #30 tab.chew 08/18/16 12/10/16 1 Day Ago Rx 81mg Active Meds: Active Medications Acetaminophen (Tylenol) 650 mg PO Q4H PRN PRN Reason: Pain MILD(1-3)/Fever >100.5/COWART Last Admin: 12/10/16 05:15 Dose: 650 mg Aspirin (Baby Aspirin) 81 mg PO QDAY NIMIS[facility] Last Admin: 12/11/16 10:17 Dose: 81 mg Bisacodyl (Dulcolax) 10 mg SC QDAY PRN PRN Reason: Constipation unrelieved by MOM Clonidine HCl (Catapres) 0.1 mg PO BID [facility] Last Admin: 12/11/16 10:17 Dose: 0.1 mg Enoxaparin Sodium (Lovenox) 40 mg SUB-Q QDAY [facility] Last Admin: 12/10/16 09:47 Dose: 40 mg Levetiracetam 1,000 mg/ (Dextrose) 110 mls @ 400 mls/hr IV Q12HR [facility] Lorazepam (Ativan) 2 mg IV Q4H PRN PRN Reason: Agitation Last Admin: 12/10/16 16:05 Dose: 2 mg Magnesium Hydroxide (Milk Of Magnesia) 30 ml PO Q4H PRN PRN Reason: Constipation Ondansetron HCl (Zofran) 4 mg IV Q8H PRN PRN Reason: N/V unrelieved by Reglan Prazosin HCl (Minipress) 2 mg PO Q12HR [facility] Last Admin: 12/11/16 10:17 Dose: 2 mg Trazodone HCl (Desyrel) 100 mg PO HS [facility] Last Admin: 12/10/16 22:30 Dose: Not Given Review of Systems All systems: negative Constitutional: weakness (generalized) Neurological: weakness (generalized), seizures, syncope, convulsions, confusion , memory loss (since stroke and coma), no parathesias, no numbness, no balance difficulties, no gait dysfunction, no motor disturbance, no sensory deficit, no double vision Physical Examination - Vital Signs Vital Signs: Vital Signs Temp Pulse Resp BP Pulse Ox 98.1 F 133 H 16 87/53 98 12/09/16 09:04 12/09/16 09:04 12/09/16 09:04 12/09/16 09:04 12/09/16 09:04 - Constitutional General appearance: comfortable - EENT EENT: Present: ATNC, PERRL, mucous membranes moist, hearing intact, vision intact - Respiratory Respiratory: Present: chest non-tender, normal breath sounds, no respiratory distress - Cardiovascular Cardiovascular: Present: regular rate Extremities: Present: no peripheral edema bilatateraly, no clubbing, cyanosis, no inflammation, no ischemia or petechiae - Gastrointestinal Gastrointestinal: Present: normoactive bowel sounds, soft, non-distended - Integumentary Integumentary: Present: normal - Neurologic Cranial nerve examination: PERRL, EOMI, VFF, V1/V2/V3 grossly intact, face symmetric, tongue midline, intact, Intact Vestibulo-ocular r, intact corneal reflex, normal palatal elevation, other (faint decreased concentration) Speech examination: intact Sensorimotor examination: intact Detailed motor examination: grossly full strength in, other (faint fine motor L sided weakness) Motor examination - right side: 5/5: biceps, triceps, wrist flexion, wrist extension, curator of photography and prints, hip flexors, knee extensors, dorsiflexion, toe extension (EHL) , plantarflexion Motor examination - left side: 5/5: biceps, triceps, wrist flexion, wrist extension, curator of photography and prints, hip flexors, knee extensors, dorsiflexion, toe extension (EHL) , plantarflexion Detailed sensory examination: intact, light touch, temperature Reflex and gait examination: intact Reflexes: 1+: ankle, 2+: bicep, knee, tricep - Musculoskeletal Musculoskeletal: Present: no fluid collection, no pain, normal range of motion - Psychiatric Psychiatric: Present: mood/affect appropriate, cooperative Results - Laboratory Findings CBC and BMP: 12/10/16 05:24 12/10/16 05:24 Abnormal Lab Findings: Abnormal Labs 12/09/16 12/10/16 12/10/16 11:56 05:24 05:24 [place] % (Auto) 9.6 H [place] # 1.0 H Seg Neutrophils % 75.2 H Seg Neutrophils # 7.8 H Potassium 3.5 L D Carbon Dioxide 19 L Glucose 107 H POC Glucose 112 H Assessment and Plan 61 YO M hx epilepsy since prolonged coma in 2008 for swine flu/PNA/sepsis compliant on LEV 750mg BID and stroke 2011 w/ residual fine motor L sided weakness p/w breakthrough GTC on 12/09 AM and recurrent in ED. On current exam nonfocal beyond residual stroke deficit as above and very mild/faint decreased concentration likely post ictal deficit as markedly improved MS since admission. CTH chronic R temporal infarct. Plan and Recommendation: 1. Telemetry bed w/ Q4 hour neuro checks & Sz precautions 2. Brain imaging: MRI Brain +/- [facility] Seizure Protocol if able to be obtained. ? neck hardware limits MRIs in the past. If imaging unable to be obtained, routine EEG is reasonable. 3. Labs: Serum/Urine Tox, UA/UCx, Electrolytes especially Na, Ca, Mg, and Glucose, TSH/Ammonia and correct as necessary 4. Cont Infectious work up/medical management for UTI, PNA, cellulitis, bacteremia, etc. 5. Avoid hyponatremia, hypo/hyper-calcemia, hypo/hyperglycemia, acidosis, hypoxia/hypoxemia, hypercarbia/hypercapnia 6. Avoid institution of any psychoactive medications (e.g. antihistamines, anticholinergics, BZD, hypnotics, opiates) as able unless low doses of low potency antipsychotic needed for behavioral issues complicating medical care 7. AED therapy: Continue Keppra but increase to 1000mg BID 8. Avoid meds that can lower sz threshold e.g. Tramadol, fluroquinolones, carbapenems 9. If Hx obtained to suggest EtOH dependence, supplement Thiamine, Folate and cont CIWA Protocol 10. Pt advised of [place] driving regulations: report date of presumed Seizure/ unexplained loss of consciousness/awareness spell to [facility], refrain from operating a motor vehicle for 6 months after this date, and avoid unsupervised activity particularly around water or heights 11. Neurologically clear for discharge once resolved fully to baseline w/o recurrent seizure for 24 hrs and above imaging nonacute if able to be obtained. 12. Follow up as outpt with Neurology
[2016-12-11] MEDS: ATIVAN IV PRN (13:28)
[2016-12-11] MEDS: KEPPRA 1,000 MG in D5W 100 ML IV SCH ×2 (13:33→21:04)
[2016-12-11] MEDS: DESYREL PO SCH (21:05)
--- NOTE | 2016-12-11 23:44 | Magnetic Resonance Report ---
FINAL REPORT PROCEDURE: MR BRAIN WO/W CON TECHNIQUE: Magnetic resonance imaging of the brain was performed before and after the IV injection of paramagnetic contrast. HISTORY: AMS COMPARISON: No prior studies are available for comparison. FINDINGS: Diffusion-weighted images failed to demonstrate any hyperintense signal abnormalities. A wedge-shaped irregular area of signal abnormality is noted involving the right parietal lobe measuring 2.4 x 3.1 centimeters involving the whaley and white matter without any mass effect. This is consistent with an area of encephalomalacia. Cerebral sulci and ventricles are otherwise within normal limits. A few small focal signal abnormalities are noted involving the bilateral frontal and left parietal lobe which are of nonspecific nature. There is no evidence of any intracranial hemorrhage. Sella and suprasellar cistern are unremarkable. Cerebellum and brainstem demonstrate normal signal characteristics. Post-contrast images demonstrate a 2 millimeter focal area of contrast enhancement involving the whaley matter of high right parietal lobe without any surrounding mass effect. IMPRESSION: No acute infarct. No intracranial hemorrhage. An irregular area of encephalomalacia involving the right parietal lobe most likely represents an old infarct or hemorrhage. A 2 millimeter focus of contrast enhancement is noted involving a right high parietal gyrus. The etiology is unknown. Clinical correlation and follow-up studies are recommended..
[2016-12-12] MEDS: HABITROL TD SCH ×2 (05:22→09:39)
[2016-12-12] MEDS: TYLENOL PO PRN (05:28)
[2016-12-12] MEDS: ATIVAN IV PRN (05:32)
--- NOTE | 2016-12-12 07:25 | Consultation ---
HISTORY OF PRESENT ILLNESS: This is a 61-year-old white male who has begun to have episodic problems with confusion, loss of consciousness and frankly observed seizure activity. He had been apparently taking some outpatient nerve blocks by an anesthesiologist. Subsequent to some of these, he became more confused, began to experience headaches, had problems with orientation. In the interval, he has had several witnessed seizures by his sister who is in the room speaking with me. There is no prior history of seizures, but he does have a history of significant stroke in 2001 and also has had a history of prior head trauma. He has a longstanding history of tinnitus in both ears, which was related to noise exposure. PHYSICAL EXAMINATION: GENERAL: On my examination, he is alert, appropriate. NECK: Supple. NEUROLOGIC: Speech is clear. Sheet Taker strength is equal. Cranial nerves are intact. Motor and sensory examination unremarkable. He is slightly hard of hearing. He does have good motor tone. No tremors are present. The patient does not have any jerk, no asterixis. 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 There are a number of features including aura, focal onset, and generalized spread. I would recommend probably a combination of medications, Keppra and Tegretol. medications would work best because he is to be on 2 agents and I would recommend getting an EEG. JOB# [id number] ALVARO/NTS
[2016-12-12] MEDS: CATAPRES PO SCH (09:38)
[2016-12-12] MEDS: BABY ASPIRIN PO SCH (09:38)
[2016-12-12] MEDS: LOVENOX SUB-Q SCH (09:39)
[2016-12-12] MEDS: MINIPRESS PO SCH (09:40)
--- NOTE | 2016-12-12 11:53 | Discharge Summary ---
Providers - Providers Date of Admission: 12/09/16 11:35 Attending physician: QUAN RAYMOND MD 12/09/16 12:25 Consult to Physician [CONS] Routine Consulting Provider: MELISSA ALEXANDER Reason For Exam: sz Place consult to:: neuro Notified:: y Time called:: 14:00 Comment:: left message on ext [id number] 12/11/16 11:28 Consult to Physician [CONS] Routine Consulting Provider: AL CABELLO Reason For Exam: sz d/o Place consult to:: neuro Notified:: office Phone number called:: [phone] Was contact made?: Yes Time called:: 11:36 12/11/16 20:13 Consult to Physician [CONS] Routine Consulting Provider: STEPHANIE RUVALCABA Reason For Exam: abnormal heart rhythm Place consult to:: N/A Notified:: N/A Primary care physician: LOGISTICS ANALYST Hospitalization Condition: Stable Disposition: DC-30 STILL A PATIENT Exam - Constitutional Vitals: Temp Pulse Resp BP Pulse Ox 97.4 F L 100 H 22 124/85 97 12/12/16 08:05 12/12/16 08:05 12/12/16 08:05 12/12/16 08:05 12/12/16 08:05 Plan Follow up with: ALEJANDRA MARIANO MD [Primary Care Provider] - 3-5 Days LA CABELLO MD [Staff Physician] - 7 Days Prescriptions: levETIRAcetam [Keppra TAB] 1,000 mg PO BID #60 tablet
[2016-12-12] MEDS: KEPPRA 1,000 MG in D5W 100 ML IV SCH (12:14)
[2016-12-12] MEDS ORDERED: KEPPRA PO SCH (13:00)
--- NOTE | 2016-12-12 13:57 | Consultation ---
History of Present Illness Consult date: 12/12/16 Consult reason: other (Sinus pause) History of present illness: This is a 61yr old with a history of seizure disorder who was admitted 3 days ago with breakthrough seizure. 2 nights ago patient noted a pause of 3.4 seconds on telemetry during sleep. Cardiac consultation requested. Patient denies palpitations, chest pain and shortness of breath. Patient denies dizziness. Laboratory values shows a normal TSH and serum magnesium. Past History Social history: lives with family. denies: smoking, alcohol abuse Family history: hypertension Medications and Allergies Allergies Allergy/AdvReac Type Severity Reaction Status Date / Time haloperidol [From Haldol] Allergy Unknown Verified 12/09/16 09:16 haloperidol lactate Allergy Unknown Verified 12/09/16 09:16 [From Haldol] levofloxacin [From Levaquin] Allergy Unknown Verified 12/09/16 09:16 quetiapine fumarate Allergy Unknown Verified 12/09/16 09:16 [From Seroquel] Penicillins AdvReac Hives Verified 12/09/16 09:16 Home Medications Medication Instructions Recorded Confirmed Last Taken Type cloNIDine [Catapres] 0.1 mg PO BID 08/21/14 12/10/16 1 Day Ago History .1 Terazosin HCl 5 mg PO HS 08/17/16 12/10/16 1 Day Ago History 5mg traZODone [Desyrel] 2 tab PO HS 08/17/16 12/10/16 Unknown History Aspirin [Aspirin BABY CHEW TAB] 81 mg PO QDAY #30 tab.chew 08/18/16 12/10/16 1 Day Ago Rx 81mg levETIRAcetam [Keppra TAB] 1,000 mg PO BID #60 tablet 12/12/16 Unknown Rx Active Meds: Active Medications Acetaminophen (Tylenol) 650 mg PO Q4H PRN PRN Reason: Pain MILD(1-3)/Fever >100.5/COWART Last Admin: 12/12/16 05:28 Dose: 650 mg Aspirin (Baby Aspirin) 81 mg PO QDAY [facility] Last Admin: 12/12/16 09:38 Dose: 81 mg Bisacodyl (Dulcolax) 10 mg [place] QDAY PRN PRN Reason: Constipation unrelieved by MOM Clonidine HCl (Catapres) 0.1 mg PO BID [facility] Last Admin: 12/12/16 09:38 Dose: 0.1 mg Enoxaparin Sodium (Lovenox) 40 mg SUB-Q QDAY [facility] Last Admin: 12/12/16 09:39 Dose: 40 mg Levetiracetam (Keppra) 1,000 mg PO BID [facility] Last Admin: 12/12/16 12:31 Dose: 1,000 mg Lorazepam (Ativan) 2 mg IV Q4H PRN PRN Reason: Agitation Last Admin: 12/12/16 05:32 Dose: 2 mg Magnesium Hydroxide (Milk Of Magnesia) 30 ml PO Q4H PRN PRN Reason: Constipation Nicotine (Habitrol) 14 mg TD QDAY [facility] Last Admin: 12/12/16 09:39 Dose: 14 mg Ondansetron HCl (Zofran) 4 mg IV Q8H PRN PRN Reason: N/V unrelieved by Reglan Prazosin HCl (Minipress) 2 mg PO Q12HR [facility] Last Admin: 12/12/16 09:40 Dose: 2 mg Trazodone HCl (Desyrel) 100 mg PO HS [facility] Last Admin: 12/11/16 21:05 Dose: 100 mg Physical Examination Vital Signs Temp Pulse Resp BP Pulse Ox 98.1 F 133 H 16 87/53 98 12/09/16 09:04 12/09/16 09:04 12/09/16 09:04 12/09/16 09:04 12/09/16 09:04 General appearance: no acute distress HEENT: Positive: PERRL Neck: Positive: trachea midline Cardiac: Positive: Reg Rate and Rhythm Lungs: Positive: Decreased Breath Sounds Neuro: Positive: Grossly Intact Results 12/10/16 05:24 12/10/16 05:24 Assessment and Plan Seizure disorder Nocturnal pause on telemetry no reoccurrence normal TSH
[2016-12-12 14:27] VITALS: BP 129/85
--- NOTE | 2016-12-12 15:32 | Event Note ---
Date: 12/12/16 Electrophysiology Service. I was asked to evaluate patient by Dr. Wilson due to significant ventricular pauses. I reviewed his telemetry and most recently he had 3.5 second ventricular pause on 12/11/16 at 17:55. Unfortunately, the patient has been discharged and I was unable to evaluate him. Mane Ortega MD
--- NOTE | 2016-12-12 15:57 | Discharge Summary ---
Providers - Providers Date of Admission: 12/09/16 11:35 Attending physician: QUAN RAYMOND MD 12/09/16 12:25 Consult to Physician [CONS] Routine Consulting Provider: MELISSA ALEXANDER Reason For Exam: sz Place consult to:: neuro Notified:: y Time called:: 14:00 Comment:: left message on ext [id number] 12/11/16 11:28 Consult to Physician [CONS] Routine Consulting Provider: LA CABELLO Reason For Exam: sz d/o Place consult to:: neuro Notified:: office Phone number called:: [phone] Was contact made?: Yes Time called:: 11:36 12/11/16 20:13 Consult to Physician [CONS] Routine Consulting Provider: STEPHANIE RUVALCABA Reason For Exam: abnormal heart rhythm Place consult to:: N/A Notified:: N/A 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 Patient reportedly had a seizure at home and later developed a second seizure in the emergency room. Patient is somewhat lethargic and postictal. Therefore, most of the history was obtained from the ER record. Patient reportedly was given Ativan as well. Patient was admitted to the floor and his Keppra was increased from 750 twice a day to 1000 mg twice a day, neurology consult appreciated. Patient didn't have seizure after admission. Patient has 3.4 second ventricular pause on the monitor, patient was not symptomatic during the event. [place] [facility] was consulted and patient was seen by Dr Ruvalcaba and recommended to be seen by EP. The patient was asking to go home and wanted to be seen by his railway track worker at the [place] and patient left before seen by Dr Ortega. I spoke with Dr Ortega the patient to be seen by him in the office. I gave Dr Ortega office number to patient's daughter Rhiannon Beckham and he will be scheduled and to be seen in the office. I discussed with the daughter to brought the patient if he become symptomatic immediately to the ER. I spoke with nurse Practitioner Erich and if needed asked to readmit the patient and she said she spoke with the railway track worker and said his Pause is only 3.4 seconds and can be seen as an out patient. She said per railway track worker it is not significant. Patient didn't have any repeat episode. Disposition: -01 TO HOME OR SELFCARE Time spent for discharge: 31 minutes - Discharge Diagnoses (1) Chest pain Status: Acute Qualifiers: Chest pain type: precordial chest pain Ischemic chest pain type: I (2) Hypotensive episode Status: Resolved (3) Nausea Status: Acute (4) Neck pain Status: Acute (5) Recurrent seizures Status: Acute Core Measure Documentation - Palliative Care Palliative Care/ Comfort Measures: Not Applicable - Core Measures Any of the following diagnoses?: none Exam - Physical Exam Narrative exam: Not in cardiopulmonary distress. The patient appeared well nourished and normally developed. Vital signs as documented. Head exam is unremarkable. No scleral icterus . Neck is without jugular venous distension, thyromegaly, or carotid bruits. Lungs are clear to auscultation. Cardiac exam reveals regular rate and Rhythm. First and second heart sounds normal. No murmurs, rubs or gallops. Abdominal exam reveals normal bowel sounds, no masses, no organomegaly and no aortic enlargement. Extremities are nonedematous and both femoral and pedal pulses are normal. FLOOR BROKER: Alert and oriented 3. No focal weakness. - Constitutional Vitals: Temp Pulse Resp BP Pulse Ox 97.9 F 84 20 129/85 96 12/12/16 11:55 12/12/16 11:55 12/12/16 11:55 12/12/16 11:55 12/12/16 11:55 Plan Activity: no restrictions Weight Bearing Status: Full Weight Bearing Diet: low cholesterol Follow up with: ALEJANDRA MARIANO MD [Primary Care Provider] - 3-5 Days LA CABELLO MD [Staff Physician] - 7 Days ABIOLA ORTEGA MD [Staff Physician] - 7 Days Prescriptions: levETIRAcetam [Keppra TAB] 1,000 mg PO BID #60 tablet
== END 2016-12-12 15:00 | disposition home or self-care (01) | DRG 315 ==
LOC: ED 08:35 → 4A 11:35
PROVIDERS: ADMIT Internal Medicine; ATTEND Internal Medicine
DX: I95.9 Hypotension, unspecified (principal); E87.2 Acidosis; I69.354 Hemiplegia and hemiparesis following cerebral infarction affecting left non-dominant side; G40.909 Epilepsy, unspecified, not intractable, without status epilepticus; R07.2 Precordial pain; I10 Essential (primary) hypertension; G89.29 Other chronic pain; M54.9 Dorsalgia, unspecified; F17.210 Nicotine dependence, cigarettes, uncomplicated; M19.019 Primary osteoarthritis, unspecified shoulder; R11.0 Nausea; M54.2 Cervicalgia; Z88.1 Allergy status to other antibiotic agents; Z88.8 Allergy status to other drugs, medicaments and biological substances; Z82.49 Family history of ischemic heart disease and other diseases of the circulatory system; Z79.899 Other long term (current) drug therapy; Z88.0 Allergy status to penicillin
CPT/HCPCS: 36415; 70450; 70553; 71010; 80048; 80074; 80177; 80307; 80320; 81001; 82140; 82962; 83735; 83880; 84443; 84484; 85025; 87040; 87086; 93005; 93010; 93306; 93880; 96361; 96374; 96375; A9577; G0480; J1650; J1953; J2060; J7030

== ENCOUNTER 2017-10-05 11:51 | Outpatient (CLI) | payer MEDICARE ==
--- NOTE | 2017-10-05 14:36 | Cat Scan Report ---
FINAL REPORT EXAM: CT LUMBAR SPINE WO CON HISTORY: Postlaminectomy syndrome COMPARISON: None. TECHNIQUE: Multiple contiguous axial images were obtained through the lumbar spine without administration of IV contrast. Reformatted sagittal and coronal images were available for review. FINDINGS: There is normal alignment without acute fracture or dislocation. There are Schmorl's nodes at the superior endplates of the L1 and L5 vertebral bodies with mild loss of height. There has been a prior laminectomy at the level of L5. T12-L1: Mild intervertebral disc space narrowing. No central or foraminal stenosis L1-L2: Mild facet arthropathy. No central foraminal stenosis. L2-L3: Mild intervertebral disc space narrowing. Broad-based disc bulge. No central or foraminal stenosis. L3-L4: Mild intervertebral disc space narrowing. Broad-based disc bulge. No central foraminal stenosis. Mild facet arthropathy. L4-L5: Grade 1 anterolisthesis of L4 on L5. Moderate facet arthropathy. Mild bilateral foraminal narrowing. No central stenosis. L5-S1: Intervertebral disc space narrowing. Broad-based disc bulge. No central or foraminal stenosis. The paravertebral soft tissues are normal. IMPRESSION: Status post laminectomy at L5. Mild multilevel degenerative changes as described above. Schmorl's nodes at the superior endplates of the L1 and L5 vertebral bodies with mild loss of height.
== END 2017-10-05 11:52 | disposition home or self-care (01) ==
LOC: CT 11:51
PROVIDERS: ATTEND Pain Medicine Interventional Pain Medicine
DX: M47.816 Spondylosis without myelopathy or radiculopathy, lumbar region (principal); M96.1 Postlaminectomy syndrome, not elsewhere classified; M12.88 Other specific arthropathies, not elsewhere classified, other specified site; F17.210 Nicotine dependence, cigarettes, uncomplicated; M51.26 Other intervertebral disc displacement, lumbar region; Z98.890 Other specified postprocedural states
CPT/HCPCS: 72131

== ENCOUNTER 2017-10-09 15:12 | Emergency (ER) | payer MEDICARE ==
[2017-10-09] MEDS ORDERED: ATIVAN IV ONE (16:20)
--- NOTE | 2017-10-09 16:24 | Emergency Department Report ---
HPI - General Chief Complaint: Dizziness Time Seen by Provider: 10/09/17 16:03 - HPI HPI: This is a 62-year-old male who presents to the emergency department with a complaint of a 4 day history of dizziness, upper extremity tremors and some subjective confusion. He says that he is "just not been feeling well." He denies any vision change, slurred speech, numbness. 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 He also has a history of chronic back and neck pains for which she goes to a pain management clinic. He has a history of hypertension, kidney stones, enlarged prostate, seizures. His primary care physician is a Dr. Mccarthy at [facility] and he sees a neurologist through the [facility]. He has not taken anything for her symptoms by presentation. The patient also used to be on Klonopin but stopped taking that a cold turkey about 1 week ago as he was told he is not allowed to be on that along with his pain medications. No recent travel or sick contacts at home. ED Past Medical Hx - Past Medical History Previous Medical History?: Yes Hx Hypertension: Yes (2009) Hx CVA: Yes (2011) Hx Congestive Heart Failure: No Hx Diabetes: No Hx Renal Disease: Yes (Prostate) Hx Arthritis: Yes (BACK, NECK SHOULDER) Hx Seizures: Yes (2009, PER PATIENT LAST WAS 2009) Hx Kidney Stones: Yes (X6 OCCURANCES) Hx Asthma: No Hx COPD: No Hx HIV: No Additional medical history: Chronic back pain, pressure ulcer on left heel, torn tendons in right shoulder. - Surgical History Past Surgical History?: Yes Additional Surgical History: Back surgeries (C5,6,&7), hernia repair, orchiectomy, spinal stimulator with subsequent removal. - Social History Smoking Status: Current Every Day Smoker Substance Use Type: None - Medications Home Medications: Home Medications Medication Instructions Recorded Confirmed Last Taken Type Terazosin HCl 5 mg PO HS 08/17/16 06/10/17 1 Day Ago History ~12/08/16 5mg traZODone [Desyrel] 1 tab PO HS 08/17/16 06/10/17 Unknown History levETIRAcetam [Keppra] 1,500 mg PO BID 06/10/17 06/10/17 Unknown History Acetaminophen [Acetaminophen TAB] 650 mg PO Q4H PRN #30 tablet 06/11/17 Unknown Rx Cholecalciferol (Vitamin D3) 5,000 unit PO DAILY #60 capsule 06/11/17 Unknown Rx [Vitamin D3] Docusate Sodium [Colace CAP] 100 mg PO BID capsule 06/11/17 Unknown Rx Famotidine [Pepcid] 20 mg PO BID tablet 06/11/17 Unknown Rx Sennosides Tab [Senokot] 8.6 mg PO Q12HR tablet 06/11/17 Unknown Rx Aspirin [Aspirin TAB] 325 mg PO QDAY #30 tablet 06/15/17 Unknown Rx AtorvaSTATin [Lipitor] 40 mg PO QHS #30 tab 06/15/17 Unknown Rx Nicotine [Habitrol] 21 mg TD DAILY #30 patch 06/15/17 Unknown Rx ED Review of Systems ROS: Stated complaint: TRIMMERS Other details as noted in HPI Constitutional: weakness. denies: fever Eyes: denies: eye pain, eye discharge, vision change ENT: denies: ear pain, throat pain Respiratory: denies: cough, shortness of breath, wheezing Cardiovascular: denies: chest pain, palpitations Gastrointestinal: nausea. denies: abdominal pain, vomiting, diarrhea Genitourinary: denies: urgency, dysuria Musculoskeletal: denies: joint swelling, arthralgia Skin: denies: rash, lesions Neurological: confusion, other (dizziness). denies: headache, numbness, paresthesias Physical Exam - Physical Exam Vital Signs: Vital Signs 10/09/17 10/09/17 15:22 15:50 Temperature 97.2 F L 97.2 F L Pulse Rate 98 H 98 H Respiratory 17 Rate Blood Pressure 148/100 Blood Pressure 148/100 [Left] O2 Sat by Pulse 97 97 Oximetry Physical Exam: GENERAL: The patient is well-developed well-nourished. HENT: Normocephalic. Atraumatic. Patient has moist mucous membranes. EYES: Extraocular motions are intact. Pupils equal reactive to light bilaterally. No nystagmus. NECK: Supple. Trachea is midline. CHEST/LUNGS: Clear to auscultation. There is no respiratory distress noted. HEART/CARDIOVASCULAR: Regular. There is no tachycardia. There is no murmur. ABDOMEN: Abdomen is soft, nontender. Patient has normal bowel sounds. There is no abdominal distention. SKIN: Skin is warm and dry. NEURO: The patient is awake, alert, and oriented. The patient is cooperative. The patient has no focal neurologic deficits. The patient has normal speech. Cranial nerves II through XII grossly intact. No pronator drift. No dysmetria. Patient has a very mild distal bilateral upper extremity tremor. MUSCULOSKELETAL: There is no tenderness or deformity. There is no limitation range of motion. There is no evidence of acute injury. Muscle strength 5 out of 5 upper and lower extremities bilaterally. ED Course Vital Signs 10/09/17 10/09/17 15:22 15:50 Temperature 97.2 F L 97.2 F L Pulse Rate 98 H 98 H Respiratory 17 Rate Blood Pressure 148/100 Blood Pressure 148/100 [Left] O2 Sat by Pulse 97 97 Oximetry - Reevaluation(s) Reevaluation #1: 10/09/17 20:25 NIH Stroke Scale/Score (NIHSS) from [place] on 10/09/2017 All calculations should be rechecked by clinician prior to use RESULT SUMMARY: 0 points NIH Stroke Scale INPUTS: 1A: Level of consciousness > 0 = Alert; keenly responsive 1B: Ask month and age > 0 = Both questions right 1C: 'Blink eyes' & 'squeeze hands' > 0 = Performs both tasks 2: Horizontal extraocular movements > 0 = Normal 3: Visual schmidt > 0 = No visual loss 4: Facial palsy > 0 = Normal symmetry 5A: Left arm motor drift > 0 = No drift for 10 seconds 5B: Right arm motor drift > 0 = No drift for 10 seconds 6A: Left leg motor drift > 0 = No drift for 5 seconds 6B: Right leg motor drift > 0 = No drift for 5 seconds 7: Limb Ataxia > 0 = No ataxia 8: Sensation > 0 = Normal; no sensory loss 9: Language/aphasia > 0 = Normal; no aphasia 10: Dysarthria > 0 = Normal 11: Extinction/inattention > 0 = No abnormality ED Medical Decision Making - Lab Data Result diagrams: 10/09/17 16:39 10/09/17 16:39 - EKG Data -: EKG Interpreted by Me EKG shows normal: sinus rhythm, axis, intervals, QRS complexes, ST-T waves Rate: normal - EKG Data When compared to previous EKG there are: previous EKG unavailable Interpretation: normal EKG - Radiology Data Radiology results: report reviewed CT of the head without contrast shows a remote right temporal infarct. No acute intracranial abnormality identified. Mucous retention cyst noted in the sphenoid sinus. - Medical Decision Making The patient's symptoms going on for the past 4 days. He does have a very mild bilateral distal upper extremity tremor. However on NIH stroke scale he is a 0. CT of the head shows a remote infarct but nothing acute or subacute. His labs are mostly unremarkable including no signs of infection, electrolyte abnormalities, renal insufficiency, glucose abnormalities and he had a negative troponin. He might have some mild hypothyroidism with a slightly elevated TSH level. The patient was given a little bit of Ativan as I think some of the symptoms could be from withdrawal from chronic benzodiazepine use and quit cold turkey. He was given something for his headache. He was reevaluated multiple times for multiple hours and is improved. His tremor seems to have stopped and his headache is almost completely resolved. He was walked throughout the emergency department and appeared stable while doing so. He does not have any focal, motor or sensory deficits and his cranial nerves are intact. He has good follow-up with both primary care and neurology. For all these reasons I felt that he is safe for discharge home at this time but he has been instructed to follow-up with his PCP and neurologist tomorrow without fail and to return to the emergency department immediately with any worsening of the symptoms, signs of any neurological deficits, or with any acute distress. Both he and his aunt listen to all of the lab and imaging results and the plan for discharge home and close follow-up and they understand and agree to the plan. - Differential Diagnosis CVA, TIA, dysrhythmia, metabolic encephalopathy Critical Care Time: No Critical care attestation.: If time is entered above; I have spent that time in minutes in the direct care of this critically ill patient, excluding procedure time. ED Disposition Clinical Impression: Tremor, Dizziness Disposition: DC-01 TO HOME OR SELFCARE Is pt being admited?: No Condition: Stable Instructions: Lightheadedness (ED), Dizziness (ED) Additional Instructions: Please follow-up with your primary care physician and your neurologist tomorrow without fail. Return to the emergency department immediately with any worsening of your symptoms, any slurred speech, weakness, chest pain, or with any acute distress. Referrals: MILY MCCARTHY [Primary Care Provider] - [facility] Time of Disposition: 22:10
[2017-10-09 17:04] LABS: Basophils % (Auto) 0.4 % (0.0-1.8); Eosinophils # (Auto) 0.1 K/mm3 (0.0-0.4); Eosinophils % (Auto) 1.3 % (0.0-4.3); Hematocrit 44.9 % (35.5-45.6); Lymphocytes # (Auto) 1.8 K/mm3 (1.2-5.4); Lymphocytes % (Auto) 20.3 % (13.4-35.0); Mean Corpuscular HGB Conc 34 % (32-34); Mean Corpuscular Hemoglobin 30 pg (28-32); Mean Corpuscular Volume 90 fl (84-94); Monocytes # (Auto) 0.6 K/mm3 (0.0-0.8); Monocytes % (Auto) 6.7 % (0.0-7.3); Platelet Count 196 K/mm3 (140-440); Red Blood Count 4.99 M/mm3 (3.65-5.03)
[2017-10-09 17:16] LABS: INR 0.97 (0.87-1.13)
[2017-10-09 17:28] LABS: Alanine Aminotransferase 10 units/L (7-56); Albumin 4.8 g/dL (3.9-5); BUN/Creatinine Ratio 16; Blood Urea Nitrogen 13 mg/dL (9-20); Hemolysis Index 2
--- NOTE | 2017-10-09 18:05 | Cat Scan Report ---
FINAL REPORT EXAM: CT HEAD/BRAIN WO CON HISTORY: Lightheadedness/Dizziness TECHNIQUE: CT head without contrast PRIORS: Comparison is dated October 09, 2017 FINDINGS: There is encephalomalacia superior right temporal and frontal lobes most consistent with remote infarct. This is unchanged from prior exam. No acute intra or extra-axial hemorrhage identified. No evidence for midline shift or mass effect. Ventricles and sulci are within normal limits. No acute parenchymal abnormalities are identified Bony calvarium is intact. Noted is a mucous retention cyst within the sphenoid sinus. IMPRESSION: Remote right temporal infarct No acute intracranial abnormality identified Mucous retention cyst noted in the sphenoid sinus
[2017-10-09] MEDS ORDERED: PERCOCET 5/325 PO ONE (18:57)
[2017-10-09 19:55] LABS: Bacteria,Urine 1+ /HPF (Negative); Bilirubin,Urine NEG (Negative); Blood,Urine SM (Negative); Color,Urine Yellow (Yellow); Mucus,Urine FEW /HPF; Protein,Urine <15 mg/dL mg/dL (Negative); Urobilinogen,Urine < 2.0 mg/dL (<2.0); WBC,Urine < 1.0 /HPF (0.0-6.0)
[2017-10-09 20:03] LABS: Amphetamine Screen,Urine PRESUMPTIVE NEGATIVE; Benzodiazepines Screen,Urine PRESUMPTIVE NEGATIVE; Cannabinoid Screen,Urine PRESUMPTIVE NEGATIVE; Cocaine Screen,Urine PRESUMPTIVE NEGATIVE; Methadone Screen,Urine PRESUMPTIVE NEGATIVE; Opiate Screen,Urine PRESUMPTIVE NEGATIVE
[2017-10-09 22:33] VITALS: BP 106/62
== END 2017-10-09 22:32 | disposition home or self-care (01) ==
LOC: ED 15:12
DX: R25.1 Tremor, unspecified (principal); I10 Essential (primary) hypertension; M19.90 Unspecified osteoarthritis, unspecified site; F17.200 Nicotine dependence, unspecified, uncomplicated; Z86.73 Personal history of transient ischemic attack (TIA), and cerebral infarction without residual deficits
CPT/HCPCS: 36415; 70450; 80053; 80307; 81001; 82140; 84443; 84484; 85025; 85610; 93005; 93010; 96374; 99285; G0480; J2060; 80320

== ENCOUNTER 2017-10-12 18:05 | Emergency (ER) | payer MEDICARE ==
[2017-10-12 18:54] LABS: Mean Corpuscular HGB Conc 36 % (32-34); Mean Corpuscular Hemoglobin 31 pg (28-32); Mean Corpuscular Volume 88 fl (84-94); Platelet Count 196 K/mm3 (140-440); Red Blood Count 5.08 M/mm3 (3.65-5.03)
[2017-10-12 19:02] LABS: Hematocrit 44.8 % (35.5-45.6); Hemoglobin 15.9 gm/dl (11.8-15.2)
[2017-10-12 19:12] LABS: BUN/Creatinine Ratio 10; Blood Urea Nitrogen 10 mg/dL (9-20); Calcium 9.1 mg/dL (8.4-10.2); Hemolysis Index 5
[2017-10-12] MEDS ORDERED: KEPPRA 1,000 MG/NS 0.75% 100ML 1,000 MG/100 ML BAG IV ONE (19:41)
[2017-10-12] MEDS ORDERED: FIORICET PO ONE (19:54)
--- NOTE | 2017-10-12 20:06 | Emergency Department Report ---
HPI - General Chief Complaint: Seizure Time Seen by Provider: 10/12/17 19:40 - HPI HPI: Room 2 The patient is a 62-year-old male presented with a chief complaint seizure. Family states today at 11:30 while in the car the patient had a generalized tonic-clonic seizure lasting approximately 4-5 minutes. Family pulled the car over and called EMS. EMS evaluated the patient the family decided to take the patient home. Later today at approximately 16:00 the patient had a second seizure again lasted for 5 minutes. The patient had his normal aura prior to seizure which includes a headache and difficulty concentrating. Patient now complains of a headache and gives it a score of 2-3/10. Otherwise patient denies any complaints. Earlier this week the patient was running low on [employer] so for 1 day he took a half pill set of a whole pill. However for the past 3 days and patient has been taking his normal dose Location: [See above] Duration: [See above] Quality: Generalized tonic-clonic Severity: 2-3/10 Modifying factors: [see above] Context: [see above] Mode of transportation: [not driving] ED Past Medical Hx - Past Medical History Hx Hypertension: Yes (2009) Hx CVA: Yes (2011) Hx Arthritis: Yes (BACK, NECK SHOULDER) Hx Seizures: Yes Hx Kidney Stones: Yes (X6 OCCURANCES) Additional medical history: Chronic back pain, pressure ulcer on left heel, torn tendons in right shoulder. Enlarged prostate - Surgical History Past Surgical History?: Yes Additional Surgical History: Back surgeries (C5,6,&7), hernia repair, orchiectomy (secondary to complicated epididymitis), spinal stimulator with subsequent removal. - Family History Family history: no significant - Social History Smoking Status: Current Every Day Smoker (1 pack per day) Substance Use Type: None (denies illicit drug use) - Medications Home Medications: Home Medications Medication Instructions Recorded Confirmed Last Taken Type Terazosin HCl 5 mg PO HS 08/17/16 06/10/17 1 Day Ago History ~12/08/16 5mg traZODone [Desyrel] 1 tab PO HS 08/17/16 06/10/17 Unknown History Acetaminophen [Acetaminophen TAB] 650 mg PO Q4H PRN #30 tablet 06/11/17 Unknown Rx Cholecalciferol (Vitamin D3) 5,000 unit PO DAILY #60 capsule 06/11/17 Unknown Rx [Vitamin D3] Docusate Sodium [Colace CAP] 100 mg PO BID capsule 06/11/17 Unknown Rx Famotidine [Pepcid] 20 mg PO BID tablet 06/11/17 Unknown Rx Sennosides Tab [Senokot] 8.6 mg PO Q12HR tablet 06/11/17 Unknown Rx Aspirin [Aspirin TAB] 325 mg PO QDAY #30 tablet 06/15/17 Unknown Rx AtorvaSTATin [Lipitor] 40 mg PO QHS #30 tab 06/15/17 Unknown Rx Nicotine [Habitrol] 21 mg TD DAILY #30 patch 06/15/17 Unknown Rx levETIRAcetam [Keppra] 1,500 mg PO BID #90 tablet 10/12/17 Unknown Rx ED Review of Systems ROS: Stated complaint: SEIZURES Other details as noted in HPI Eyes: denies: eye pain ENT: denies: throat pain Cardiovascular: denies: chest pain Gastrointestinal: denies: abdominal pain Genitourinary: denies: dysuria Musculoskeletal: myalgia ("soreness"). denies: back pain Neurological: headache Physical Exam - Physical Exam Vital Signs: Vital Signs 10/12/17 10/12/17 10/12/17 18:05 18:38 19:30 Temperature 97.8 F Pulse Rate 95 H 74 Respiratory 12 16 20 Rate Blood Pressure 112/69 Blood Pressure 113/69 [Left] O2 Sat by Pulse 100 98 100 Oximetry Physical Exam: GENERAL: The patient is well-developed well-nourished male lying on stretcher not appearing to be in acute distress. [] HEENT: Normocephalic. Atraumatic. Extraocular motions are intact. Patient has moist mucous membranes. NECK: Supple. Trachea midline CHEST/LUNGS: Clear to auscultation. There is no respiratory distress noted. HEART/CARDIOVASCULAR: Regular. There is no tachycardia. There is no gallop rub or murmur. ABDOMEN: Abdomen is soft, nontender. Patient has normal bowel sounds. There is no abdominal distention. SKIN: There is no rash. There is no edema. There is no diaphoresis. NEURO: The patient is awake, alert, and oriented. The patient is cooperative. The patient has no focal neurologic deficits. The patient has normal speech. Cranial nerves II through XII grossly intact, no drift MUSCULOSKELETAL: There is no evidence of acute injury. ED Course Vital Signs 10/12/17 10/12/17 10/12/17 18:05 18:38 19:30 Temperature 97.8 F Pulse Rate 95 H 74 Respiratory 12 16 20 Rate Blood Pressure 112/69 Blood Pressure 113/69 [Left] O2 Sat by Pulse 100 98 100 Oximetry ED Medical Decision Making - Lab Data Result diagrams: 10/12/17 18:32 10/12/17 18:32 Laboratory Tests 10/12/17 10/12/17 18:32 18:32 WBC 11.0 RBC 5.08 H Hgb 15.9 H Hct 44.8 MCV 88 MCH 31 MCHC 36 H RDW 14.0 Plt Count 196 Sodium 136 L Potassium 3.7 Chloride 99.0 Carbon Dioxide 23 Anion Gap 18 BUN 10 Creatinine 1.0 Estimated GFR > 60 BUN/Creatinine Ratio 10 Glucose 106 H Calcium 9.1 - Differential Diagnosis seizure Critical care attestation.: If time is entered above; I have spent that time in minutes in the direct care of this critically ill patient, excluding procedure time. ED Disposition Clinical Impression: Seizure Disposition: DC-01 TO HOME OR SELFCARE Is pt being admited?: No Does the pt Need Aspirin: No Condition: Stable Instructions: Epilepsy (ED) Additional Instructions: Return to the emergency department immediately should you develop worsening symptoms, fever, inability to tolerate food or liquid or any other concerns. Prescriptions: levETIRAcetam [Keppra] 1,500 mg PO BID #90 tablet Referrals: PRIMARY CARE [Primary Care Provider] - 3-5 Days [facility] [Outside] - 3-5 Days Time of Disposition: 20:07
[2017-10-12 21:58] VITALS: BP 131/88
== END 2017-10-12 21:56 | disposition home or self-care (01) ==
LOC: ED 18:05
DX: G40.909 Epilepsy, unspecified, not intractable, without status epilepticus (principal); I10 Essential (primary) hypertension; F17.200 Nicotine dependence, unspecified, uncomplicated
CPT/HCPCS: 36415; 80048; 85027; 96374; 99284; J1953

== ENCOUNTER 2019-03-26 14:10 | Inpatient (IN) | payer MEDICARE ==
[2019-03-26] MEDS ORDERED: SODIUM CHLORIDE 0.9% 1000 ML 2,000 ML IV ONE ×2 (15:04→16:13)
[2019-03-26] MEDS ORDERED: diazePAM 10 MG/2 ML SYRINGE IV ONE (15:05)
[2019-03-26] MEDS ORDERED: levETIRAcetam 1000 MG/NS 0.75% 1,000 MG/100 ML BAG IV ONE ×2 (15:05→15:10)
[2019-03-26] MEDS ORDERED: LORazepam 2 MG/ML VIAL ONE (15:08)
[2019-03-26] MEDS: LORazepam 2 MG/ML VIAL IM PRN ×2 (15:08→22:46)
[2019-03-26] MEDS ORDERED: LORazepam 2 MG/ML VIAL IV ONE (15:13)
--- NOTE | 2019-03-26 15:14 | Emergency Department Report ---
ED General Adult HPI - General Chief complaint: Altered Mental Status Stated complaint: ALTERED MENTAL STATUS Time Seen by Provider: 03/26/19 14:57 Source: patient, EMS ( EMS documentation not available at time of chart dictation ), RN notes reviewed, old records reviewed Mode of arrival: Stretcher Limitations: Altered Mental Status, Physical Limitation - History of Present Illness Initial comments: This is a 64-year-old gentleman. This patient is not known to this provider previously. Past medical history includes PTSD, hypertension, dyslipidemia, stroke, seizure disorder, on Keppra Patient brought to the hospital for general medical evaluation. The patient indicates he was consuming cocaine for recreational reasons, and reportedly became confused. At one point in time, he describes nonspecific chest pain. He cannot further describe it. He then stated that he wasn't having chest pain. He made no complaint of headache, neck pain or abdominal pain. He was initially awake, but appear to be delirious/intoxicated. While in the emergency room, the patient had a generalized tonic-clonic seizure. This was terminated with Ativan, and he was given Keppra. Currently, the patient is altered and postictal, he is persistently tachycardic, and he is now hypotensive. No additional history is available at this time. -: unknown Quality: other Consistency: other Improves with: other Worsens with: other - Related Data Home Medications Medication Instructions Recorded Confirmed Last Taken Terazosin HCl 5 mg PO HS 08/17/16 06/10/17 1 Day Ago ~12/08/16 5 mg traZODone [Desyrel] 1 tab PO HS 08/17/16 06/10/17 Unknown Previous Rx's Medication Instructions Recorded Last Taken Type Acetaminophen [Acetaminophen TAB] 650 mg PO Q4H PRN #30 tablet 06/11/17 Unknown Rx Cholecalciferol (Vitamin D3) 5,000 unit PO DAILY #60 capsule 06/11/17 Unknown Rx [Vitamin D3 5,000 UNIT] Docusate Sodium [Colace CAP] 100 mg PO BID capsule 06/11/17 Unknown Rx Famotidine [Pepcid] 20 mg PO BID tablet 06/11/17 Unknown Rx Sennosides Tab [Senokot] 8.6 mg PO Q12HR tablet 06/11/17 Unknown Rx Aspirin 325 mg PO QDAY #30 tablet 06/15/17 Unknown Rx AtorvaSTATin [Lipitor] 40 mg PO QHS #30 tab 06/15/17 Unknown Rx Nicotine [Habitrol] 21 mg TD DAILY #30 patch 06/15/17 Unknown Rx levETIRAcetam [Keppra] 1,500 mg PO BID #90 tablet 10/12/17 Unknown Rx Allergies Allergy/AdvReac Type Severity Reaction Status Date / Time haloperidol [From Haldol] Allergy Unknown Verified 03/26/19 14:48 haloperidol lactate Allergy Unknown Verified 03/26/19 14:48 [From Haldol] levofloxacin [From Levaquin] Allergy Unknown Verified 03/26/19 14:48 quetiapine fumarate Allergy Unknown Verified 03/26/19 14:48 [From Seroquel] Penicillins AdvReac Hives Verified 03/26/19 14:48 ED Review of Systems ROS: Stated complaint: ALTERED MENTAL STATUS Other details as noted in HPI Comment: Unobtainable due to pts medical conditions ED Past Medical Hx - Past Medical History Previous Medical History?: Yes Hx Hypertension: Yes (2009) Hx CVA: Yes (2011) Hx Congestive Heart Failure: No Hx Diabetes: No Hx Renal Disease: Yes (Prostate) Hx Arthritis: Yes (BACK, NECK SHOULDER) Hx Seizures: Yes Hx Kidney Stones: Yes (X6 OCCURANCES) Hx Asthma: No Hx COPD: No Hx HIV: No Additional medical history: Chronic back pain, pressure ulcer on left heel, torn tendons in right shoulder. Enlarged prostate - Surgical History Past Surgical History?: Yes Additional Surgical History: Back surgeries (C5,6,&7), hernia repair, orchiectomy (secondary to complicated epididymitis), spinal stimulator with subsequent removal. - Social History Smoking Status: Current Every Day Smoker Substance Use Type: Alcohol, Cocaine - Medications Home Medications: Home Medications Medication Instructions Recorded Confirmed Last Taken Type Terazosin HCl 5 mg PO HS 08/17/16 06/10/17 1 Day Ago History ~12/08/16 5 mg traZODone [Desyrel] 1 tab PO HS 08/17/16 06/10/17 Unknown History Acetaminophen [Acetaminophen TAB] 650 mg PO Q4H PRN #30 tablet 06/11/17 Unknown Rx Cholecalciferol (Vitamin D3) 5,000 unit PO DAILY #60 capsule 06/11/17 Unknown Rx [Vitamin D3 5,000 UNIT] Docusate Sodium [Colace CAP] 100 mg PO BID capsule 06/11/17 Unknown Rx Famotidine [Pepcid] 20 mg PO BID tablet 06/11/17 Unknown Rx Sennosides Tab [Senokot] 8.6 mg PO Q12HR tablet 06/11/17 Unknown Rx Aspirin 325 mg PO QDAY #30 tablet 06/15/17 Unknown Rx AtorvaSTATin [Lipitor] 40 mg PO QHS #30 tab 06/15/17 Unknown Rx Nicotine [Habitrol] 21 mg TD DAILY #30 patch 06/15/17 Unknown Rx levETIRAcetam [Keppra] 1,500 mg PO BID #90 tablet 10/12/17 Unknown Rx ED Physical Exam - General Limitations: Altered Mental Status General appearance: appears intoxicated, anxious, in distress - Head Head exam: Present: atraumatic, normocephalic - Eye Eye exam: Present: normal appearance, PERRL, EOMI - ENT ENT exam: Present: normal exam, normal orophraynx, mucous membranes moist, normal external ear exam - Neck Neck exam: Present: normal inspection, full ROM. Absent: tenderness, meningismus - Respiratory Respiratory exam: Present: normal lung sounds bilaterally. Absent: respiratory distress - Cardiovascular Cardiovascular Exam: Present: normal rhythm, tachycardia, normal heart sounds. Absent: systolic murmur, diastolic murmur, rubs, gallop - GI/Abdominal GI/Abdominal exam: Present: soft. Absent: distended, tenderness, guarding, rebo und, rigid, pulsatile mass - Rectal Rectal exam: Present: normal inspection - exam: Present: normal inspection External exam: Present: normal external exam - Extremities Exam Extremities exam: Present: normal inspection, other (2+ pulses noted in the b ilateral upper, lower extremities. There is no long bone tenderness. Musculoskeletal compartments are soft. The pelvis is stable.). Absent: pedal edema, calf tenderness - Back Exam Back exam: Present: normal inspection. Absent: tenderness, CVA tenderness (R), CVA tenderness (L), paraspinal tenderness, vertebral tenderness - Neurological Exam Neurological exam: Present: altered, other (patient is initially awake. He is speaking in complete sentences. He appears to be intoxicated/delirious. There is no facial droop and he is moving 4 extremities spontaneously) - Psychiatric Psychiatric exam: Present: anxious - Skin Skin exam: Present: warm, dry, intact, normal color. Absent: rash ED Course Vital Signs 03/26/19 03/26/19 03/26/19 14:20 14:24 14:31 Temperature 98.5 F Pulse Rate 138 H 138 H Respiratory 16 24 Rate Blood Pressure 143/83 143/83 Blood Pressure [Right] O2 Sat by Pulse 94 98 95 Oximetry 03/26/19 03/26/19 03/26/19 14:45 15:00 15:15 Temperature Pulse Rate 134 H 132 H 133 H Respiratory 21 24 22 Rate Blood Pressure 143/83 132/94 132/94 Blood Pressure 132/94 [Right] O2 Sat by Pulse 94 93 95 Oximetry 03/26/19 03/26/19 03/26/19 15:30 16:11 16:15 Temperature Pulse Rate 135 H 130 H 127 H Respiratory 24 26 H 22 Rate Blood Pressure 108/75 81/57 81/57 Blood Pressure 108/75 [Right] O2 Sat by Pulse 94 91 96 Oximetry 03/26/19 03/26/19 03/26/19 16:16 16:26 16:30 Temperature Pulse Rate 130 H 125 H 124 H Respiratory 20 20 19 Rate Blood Pressure 89/60 Blood Pressure 81/57 90/57 [Right] O2 Sat by Pulse 100 100 Oximetry 03/26/19 03/26/19 03/26/19 16:42 16:45 17:01 Temperature Pulse Rate 114 H 113 H Respiratory 20 18 12 Rate Blood Pressure 108/75 98/55 Blood Pressure 98/57 [Right] O2 Sat by Pulse 100 98 90 Oximetry 03/26/19 03/26/19 03/26/19 17:05 17:09 17:12 Temperature 97.8 F 97.8 F Pulse Rate 114 H Respiratory 20 Rate Blood Pressure Blood Pressure 114/82 [Right] O2 Sat by Pulse 100 Oximetry 03/26/19 03/26/19 03/26/19 17:15 17:39 17:45 Temperature Pulse Rate 106 H Respiratory 18 21 Rate Blood Pressure 106/77 115/72 115/72 Blood Pressure [Right] O2 Sat by Pulse 93 91 96 Oximetry 03/26/19 03/26/19 03/26/19 17:46 18:00 18:15 Temperature Pulse Rate 102 H 100 H 108 H Respiratory 20 19 22 Rate Blood Pressure 109/67 105/75 Blood Pressure 104/77 105/75 [Right] O2 Sat by Pulse 100 98 95 Oximetry 03/26/19 03/26/19 03/26/19 18:30 18:45 19:17 Temperature Pulse Rate 96 H 105 H Respiratory 21 26 H 13 Rate Blood Pressure 110/68 110/68 121/83 Blood Pressure [Right] O2 Sat by Pulse 97 94 93 Oximetry 03/26/19 03/26/19 03/26/19 19:18 19:31 19:45 Temperature Pulse Rate 102 H 107 H 116 H Respiratory 20 26 H 29 H Rate Blood Pressure 138/88 138/88 Blood Pressure 118/80 [Right] O2 Sat by Pulse 100 94 97 Oximetry 03/26/19 03/26/19 03/26/19 20:00 20:15 20:30 Temperature Pulse Rate 116 H 117 H 110 H Respiratory 27 H 20 22 Rate Blood Pressure 140/84 140/84 142/89 Blood Pressure [Right] O2 Sat by Pulse 98 97 96 Oximetry 03/26/19 03/26/19 03/26/19 20:45 21:00 21:15 Temperature Pulse Rate 114 H 115 H 112 H Respiratory 25 H 26 H 22 Rate Blood Pressure 142/89 136/92 136/92 Blood Pressure [Right] O2 Sat by Pulse 97 94 95 Oximetry 03/26/19 21:30 Temperature Pulse Rate 112 H Respiratory 27 H Rate Blood Pressure 145/95 Blood Pressure [Right] O2 Sat by Pulse 90 Oximetry - Reevaluation(s) Reevaluation #1: 03/26/19 16:45 Differential diagnosis, including not limited to: Cocaine intoxication, acute delirium, urinary tract infection, pneumonia, bacteremia, viremia, intra- abdominal infection, electrolyte derangement, hepatic encephalopathy Assessment and plan: 64-year-old gentleman who initially presents with probable cocaine intoxication, then had a seizure, known to have a known seizure disorder, now altered, tachycardic, hypotensive, found to have evidence of hepatic encephalopathy. He is protecting his airway at this time. Noncontrast CT scan of the brain and cervical spine pending at this time. Lactulose ordered, IV fluids ordered, ceftriaxone ordered, rectal temperature ordered, noncontrast CT scan abdomen pelvis ordered, nuclear medicine study ordered to screen for pulmonary embolism. Most likely diagnosis is prolonged postictal state secondary to seizure, likely compounded by hepatic encephalopathy, and probable cocaine intoxication. We will have low threshold to intubate and place central line. Reevaluation #2: 03/26/19 18:[address] scan of the abdomen pelvis is negative for acute disease. No additional convulsive events noted at this time. Patient resting comfortable, and in no acute distress. Hospital physician, Dr. Espinoza to admit patient to the medical service. Reevaluation #3: 03/26/19 21:40 Nuclear medicine study is low probability for pulmonary embolism. No additional convulsive events noted. Patient's mental status continues to improve. He is currently awake and conversing with staff members. He does not appear to be in any acute distress. Lactic acidosis is likely multifactorial, likely secondary to seizure, and probable hepatic encephalopathy. Leukocytosis is likely multifactorial, including stress reaction. However, mental status is improved, there is no neck pain or neck stiffness, there are no meningeal signs, this is unlikely to be meningitis. Most likely, the patient has a multifactorial toxic metabolic encephalopathy, likely secondary to cocaine use, hepatic encephalopathy/hyperammonemia, dehydration, and postictal state. However, he is clinically improving. ED Medical Decision Making - Lab Data Result diagrams: 03/26/19 Unknown 03/26/19 15:15 Vital Signs 03/26/19 14:20 Temperature 98.5 F Pulse Rate 138 H Respiratory 16 Rate Blood Pressure 143/83 O2 Sat by Pulse 94 Oximetry Lab Results 03/26/19 03/26/19 03/26/19 Range/Units 15:15 15:15 15:15 PT 15.1 H (12.2-14.9) Sec. INR 1.20 H (0.87-1.13) APTT 25.2 (24.2-36.6) Sec. D-Dimer 1577.19 H (0-234) ng/mlDDU Sodium 143 (137-145) mmol/L Potassium 3.7 (3.6-5.0) mmol/L Chloride 99.7 (98-107) mmol/L Carbon Dioxide 7 L* (22-30) mmol/L Anion Gap 41 mmol/L BUN 35 H (9-20) mg/dL Creatinine 1.7 H (0.8-1.5) mg/dL Estimated GFR 41 ml/min BUN/Creatinine Ratio 21 % Glucose 178 H (75-100) mg/dL Calcium 9.2 (8.4-10.2) mg/dL Ammonia 246.0 H (25-60) umol/L TSH (0.270-4.200) mlU/mL Free T4 (0.76-1.46) ng/dL Urine Color (Yellow) Urine Turbidity (Clear) Urine pH (5.0-7.0) Ur Specific [place] (1.003-1.030) Urine Protein (Negative) mg/dL Urine Glucose (UA) (Negative) mg/dL Urine Ketones (Negative) mg/dL Urine Blood (Negative) Urine Nitrite (Negative) Urine Bilirubin (Negative) Urine Urobilinogen (<2.0) mg/dL Ur Leukocyte Esterase (Negative) Urine WBC (Auto) (0.0-6.0) /HPF Urine RBC (Auto) (0.0-6.0) /HPF Urine Bacteria (Auto) (Negative) /HPF Urine Mucus /HPF Salicylates (2.8-20.0) mg/dL Urine Opiates Screen Urine Methadone Screen Ur Barbiturates Screen Ur Phencyclidine Scrn Ur Amphetamines Screen U Benzodiazepines Scrn Urine Cocaine Screen U Marijuana (THC) Screen Drugs of Abuse Note 03/26/19 03/26/19 03/26/19 Range/Units 15:15 15:15 15:15 PT (12.2-14.9) Sec. INR (0.87-1.13) APTT (24.2-36.6) Sec. D-Dimer (0-234) ng/mlDDU Sodium (137-145) mmol/L Potassium (3.6-5.0) mmol/L Chloride (98-107) mmol/L Carbon Dioxide (22-30) mmol/L Anion Gap mmol/L BUN (9-20) mg/dL Creatinine (0.8-1.5) mg/dL Estimated GFR ml/min BUN/Creatinine Ratio % Glucose (75-100) mg/dL Calcium (8.4-10.2) mg/dL Ammonia (25-60) umol/L TSH 5.450 H (0.270-4.200) mlU/mL Free T4 1.35 (0.76-1.46) ng/dL Urine Color (Yellow) Urine Turbidity (Clear) Urine pH (5.0-7.0) Ur Specific [place] (1.003-1.030) Urine Protein (Negative) mg/dL Urine Glucose (UA) (Negative) mg/dL Urine Ketones (Negative) mg/dL Urine Blood (Negative) Urine Nitrite (Negative) Urine Bilirubin (Negative) Urine Urobilinogen (<2.0) mg/dL Ur Leukocyte Esterase (Negative) Urine WBC (Auto) (0.0-6.0) /HPF Urine RBC (Auto) (0.0-6.0) /HPF Urine Bacteria (Auto) (Negative) /HPF Urine Mucus /HPF Salicylates < 0.3 L (2.8-20.0) mg/dL Urine Opiates Screen Urine Methadone Screen Ur Barbiturates Screen Ur Phencyclidine Scrn Ur Amphetamines Screen U Benzodiazepines Scrn Urine Cocaine Screen U Marijuana (THC) Screen Drugs of Abuse Note 03/26/19 03/26/19 Range/Units 15:37 15:37 PT (12.2-14.9) Sec. INR (0.87-1.13) APTT (24.2-36.6) Sec. D-Dimer (0-234) ng/mlDDU Sodium (137-145) mmol/L Potassium (3.6-5.0) mmol/L Chloride (98-107) mmol/L Carbon Dioxide (22-30) mmol/L Anion Gap mmol/L BUN (9-20) mg/dL Creatinine (0.8-1.5) mg/dL Estimated GFR ml/min BUN/Creatinine Ratio % Glucose (75-100) mg/dL Calcium (8.4-10.2) mg/dL Ammonia (25-60) umol/L TSH (0.270-4.200) mlU/mL Free T4 (0.76-1.46) ng/dL Urine Color Yellow (Yellow) Urine Turbidity Clear (Clear) Urine pH 6.0 (5.0-7.0) Ur Specific [place] 1.018 (1.003-1.030) Urine Protein 100 mg/dl (Negative) mg/dL Urine Glucose (UA) 50 (Negative) mg/dL Urine Ketones 20 (Negative) mg/dL Urine Blood Mod (Negative) Urine Nitrite Neg (Negative) Urine Bilirubin Neg (Negative) Urine Urobilinogen < 2.0 (<2.0) mg/dL Ur Leukocyte Esterase Neg (Negative) Urine WBC (Auto) 1.0 (0.0-6.0) /HPF Urine RBC (Auto) 4.0 (0.0-6.0) /HPF Urine Bacteria (Auto) 1+ (Negative) /HPF Urine Mucus Few /HPF Salicylates (2.8-20.0) mg/dL Urine Opiates Screen Presumptive negative Urine Methadone Screen Presumptive negative Ur Barbiturates Screen Presumptive negative Ur Phencyclidine Scrn Presumptive negative Ur Amphetamines Screen Presumptive positive U Benzodiazepines Scrn Presumptive negative Urine Cocaine Screen Presumptive positive U Marijuana (THC) Screen Presumptive negative Drugs of Abuse Note Disclamer - EKG Data -: EKG Interpreted by Nh - EKG Data 03/26/19 16:48 Today's EKG shows a sinus tachycardia, 133 bpm, there is a left axis deviation, the QTC is prolonged, there is motion artifact, the EKG is abnormal, it is not consistent with ST elevation myocardial infarction. - Radiology Data Radiology results: report reviewed, image reviewed Noncontrast CT scan brain negative for acute disease. Noncontrast CT scan cervical spine is negative for acute disease Critical Care Time: Yes Critical care time in (mins) excluding proc time.: 60 Critical care attestation.: If time is entered above; I have spent that time in minutes in the direct care of this critically ill patient, excluding procedure time. ED Disposition Clinical Impression: Seizure disorder, Lactic acidosis, Hyperammonemia, Altered mental status Disposition: [id number] OP ADMIT IP TO THIS HOSP Is pt being admited?: Yes Does the pt Need Aspirin: No Condition: Fair
[2019-03-26 15:53] LABS: Color,Urine Yellow (Yellow)
[2019-03-26 15:54] LABS: Bacteria,Urine 1+ /HPF (Negative); Bilirubin,Urine NEG (Negative); Blood,Urine MOD (Negative); Mucus,Urine FEW /HPF; Urobilinogen,Urine < 2.0 mg/dL (<2.0)
[2019-03-26 15:56] LABS: INR 1.2 (0.87-1.13)
[2019-03-26 15:57] LABS: Partial Thromboplastin Time 25.2 Sec. (24.2-36.6)
[2019-03-26 16:01] LABS: Calcium 9.2 mg/dL (8.4-10.2)
[2019-03-26 16:07] LABS: Benzodiazepines Screen,Urine PRESUMPTIVE NEGATIVE; Cannabinoid Screen,Urine PRESUMPTIVE NEGATIVE; Methadone Screen,Urine PRESUMPTIVE NEGATIVE; Opiate Screen,Urine PRESUMPTIVE NEGATIVE
[2019-03-26] MEDS ORDERED: SODIUM CHLORIDE 0.9% 1000 ML 1,000 ML IV ONE (16:13)
[2019-03-26] MEDS ORDERED: cefTRIAXone/NS 2 GM/100 ML 2 GM/100 ML BAG IV ONE (16:14)
--- NOTE | 2019-03-26 16:22 | Cat Scan Report ---
CT HEAD WITHOUT CONTRAST INDICATION / CLINICAL INFORMATION: ams. TECHNIQUE: Axial imaging performed from the skull apex through the skull base without the use of cont rast. Sagittal and coronal reformatted images. All CT scans at this location are performed using CT dose reduction for ALARA by means of automated exposure control. COMPARISON: None available. FINDINGS: CEREBRAL PARENCHYMA: Chronic infarct in the right posterior frontal lobe measures 3.7 x 3.0 cm in axi al plane. The remaining brain parenchyma demonstrates normal attenuation. No acute parenchymal proxim al SFA is appreciated. HEMORRHAGE: None. EXTRA-AXIAL SPACES: Normal in size and morphology for the patient's age. VENTRICULAR SYSTEM: Normal in size and morphology for the patient's age. MIDLINE SHIFT OR HERNIATION: None. CEREBELLUM / BRAINSTEM: No significant abnormality. CALVARIUM: No significant abnormality. ORBITS: Normal as visualized. PARANASAL SINUSES / MASTOID AIR CELLS: Normal as visualized. SOFT TISSUES of HEAD: No significant abnormality. ADDITIONAL FINDINGS: None. IMPRESSION: No acute intracranial abnormality. Chronic right posterior temporal infarct. Signer Name: Desmond Gage Jr, MD Signed: 03/26/2019 4:18 PM Workstation Name: [id number]
[2019-03-26 16:34] LABS: Amphetamine Screen,Urine PRESUMPTIVE POSITIVE; Cocaine Screen,Urine PRESUMPTIVE POSITIVE
--- NOTE | 2019-03-26 16:39 | Cat Scan Report ---
CT CERVICAL SPINE: 03/26/2019 INDICATION / CLINICAL INFORMATION: ams uncertain if fall or traum,a. COMPARISON: None available. FINDINGS: CT images of the cervical spine were obtained. Images are evaluated in the axial, coronal, and sagit dana planes. There is no evidence of acute osseous injury. The patient has had prior anterior spinal fusion at the C5-C7 levels. Vertebral body screws are prese nt at the C5, C6, and C7 levels, with a normal postoperative appearance. Overall vertebral body alignment is unremarkable. CRANIOCERVICAL JUNCTION: Unremarkable. PARASPINAL STRUCTURES: Unremarkable. IMPRESSION: No acute abnormality. Postoperative changes. All CT scans at this location are performed using dose reduction to ALARA by means of automated expos ure control. Signer Name: Rigoberto Aguilar MD Signed: 03/26/2019 4:34 PM Workstation Name: [id number]
[2019-03-26] MEDS ORDERED: LACTULOSE ENEMA 1000 ML PR STA (16:42)
[2019-03-26 17:11] LABS: Alanine Aminotransferase 22 units/L (7-56); Albumin 4.2 g/dL (3.9-5)
[2019-03-26 17:17] LABS: Bilirubin,Direct < 0.2 mg/dL (0-0.2)
--- NOTE | 2019-03-26 17:56 | Cat Scan Report ---
CT of the abdomen and pelvis without contrast INDICATION: Hypotension and weakness COMPARISON: None FINDINGS: Lung bases are clear. The liver, spleen, pancreas, adrenal glands are grossly normal. There are small renal calculi without obstruction. A left renal cyst may be present. No definite gallbladd er or biliary tree abnormality. No fluid or adenopathy in the upper abdomen. There is minimal hiatal hernia. Motion artifact is present. CT of the pelvis shows a normal appendix. There is slight sigmoid diverticulosis without diverticulit is. Bladder is moderately distended. No pelvic or inguinal adenopathy. Postoperative changes of the s pine and pelvis are seen. IMPRESSION: No acute abnormality. Automated exposure control was utilized to diminish radiation dose. Signer Name: Luc Dennis MD Signed: 03/26/2019 5:51 PM Workstation Name: [id number]
--- NOTE | 2019-03-26 18:21 | History and Physical Report ---
History of Present Illness Chief complaint: He is confused History of present illness: 64 YO Male with HTN, Seizure Disorder, HLD, PTSD, Nicotine Dependence, Polysubstance Dependence presents to ED for evaluation. Pt is confused, and lethargic with GCS of 9 and unable to provide history at time of my evaluation. Pt was initially alert and responsive upon initial presentation. Pt reported to ED staff that he had experienced recreational use of cocaine and amphetamines and subsequently became confused. Pt friends notified EMS. Upon arrival the patient was found to be in distress and transported to [facility]. Pt seen and evaluated in ED and experienced a witnessed generalized tonic clonic seizure. Pt seen and evaluated in ED and found to have Encephalopathy, DARRON, Acidosis, and Polysubstance Abuse. Pt admitted to medical floor with remote telemetry. Pt treated with IVF resuscitation therapy. No further history is obtainable. Pt is lethargic but is able to protect his airway. Prior admission on 06/10/17 reviewed. All listed medication reconciled at time of admission. QSOFA Score:5 Past History Past Medical History: other (see hpi) Past Surgical History: Other (Back, Orchiectomy) Social history: , lives with family, smoking Family history: hypertension Medications and Allergies Allergies Allergy/AdvReac Type Severity Reaction Status Date / Time haloperidol [From Haldol] Allergy Unknown Verified 03/26/19 14:48 haloperidol lactate Allergy Unknown Verified 03/26/19 14:48 [From Haldol] levofloxacin [From Levaquin] Allergy Unknown Verified 03/26/19 14:48 quetiapine fumarate Allergy Unknown Verified 03/26/19 14:48 [From Seroquel] Penicillins AdvReac Hives Verified 03/26/19 14:48 Home Medications Medication Instructions Recorded Confirmed Last Taken Type Terazosin HCl 5 mg PO HS 08/17/16 06/10/17 1 Day Ago History ~12/08/16 5 mg traZODone [Desyrel] 1 tab PO HS 08/17/16 06/10/17 Unknown History Acetaminophen [Acetaminophen TAB] 650 mg PO Q4H PRN #30 tablet 06/11/17 Unknown Rx Cholecalciferol (Vitamin D3) 5,000 unit PO DAILY #60 capsule 06/11/17 Unknown Rx [Vitamin D3 5,000 UNIT] Docusate Sodium [Colace CAP] 100 mg PO BID capsule 06/11/17 Unknown Rx Famotidine [Pepcid] 20 mg PO BID tablet 06/11/17 Unknown Rx Sennosides Tab [Senokot] 8.6 mg PO Q12HR tablet 06/11/17 Unknown Rx Aspirin 325 mg PO QDAY #30 tablet 06/15/17 Unknown Rx AtorvaSTATin [Lipitor] 40 mg PO QHS #30 tab 06/15/17 Unknown Rx Nicotine [Habitrol] 21 mg TD DAILY #30 patch 06/15/17 Unknown Rx levETIRAcetam [Keppra] 1,500 mg PO BID #90 tablet 10/12/17 Unknown Rx Active Meds: Active Medications Lorazepam (Ativan) 2 mg IM Q4HR PRN PRN Reason: Agitation Review of Systems ROS unobtainable: due to mental status Exam - Constitutional Vitals: Temp Pulse Resp BP Pulse Ox 97.8 F 102 H 20 104/77 100 03/26/19 17:12 03/26/19 17:46 03/26/19 17:46 03/26/19 17:46 03/26/19 17:46 General appearance: Present: mild distress - EENT Eyes: Present: miosis ENT: hearing intact, clear oral mucosa - Neck Neck: Present: supple, normal ROM - Respiratory Respiratory effort: normal Respiratory: bilateral: CTA - Cardiovascular Heart Sounds: Present: S1 & S2. Absent: rub, click - Extremities Extremities: pulses symmetrical, No edema Peripheral Pulses: within normal limits - Abdominal General gastrointestinal: Present: soft, non-tender, non-distended, normal bowel sounds Male genitourinary: Present: normal - Integumentary Integumentary: Present: clear, warm, dry - Musculoskeletal Musculoskeletal: gait normal, strength equal bilaterally - Psychiatric Psychiatric: no appropriate mood/affect, no intact judgment & insight, no memory intact - Neurologic Neurologic: CNII-XII intact, moves all extremities, no gait normal Results - Labs CBC & Chem 7: 03/26/19 Unknown 03/26/19 15:15 Labs: Abnormal lab results 03/26/19 03/26/19 03/26/19 Range/Units 14:37 15:15 15:15 PT 15.1 H (12.2-14.9) Sec. INR 1.20 H (0.87-1.13) D-Dimer 1577.19 H (0-234) ng/mlDDU Carbon Dioxide 7 L* (22-30) mmol/L BUN 35 H (9-20) mg/dL Creatinine 1.7 H (0.8-1.5) mg/dL Glucose 178 H (75-100) mg/dL POC Glucose 139 H (70-105) Lactic Acid (0.7-2.0) mmol/L Magnesium (1.7-2.3) mg/dL Ammonia (25-60) umol/L Total Creatine Kinase (55-170) units/L TSH (0.270-4.200) mlU/mL Salicylates (2.8-20.0) mg/dL Acetaminophen (10.0-30.0) ug/mL 03/26/19 03/26/19 03/26/19 Range/Units 15:15 15:15 15:15 PT (12.2-14.9) Sec. INR (0.87-1.13) D-Dimer (0-234) ng/mlDDU Carbon Dioxide (22-30) mmol/L BUN (9-20) mg/dL Creatinine (0.8-1.5) mg/dL Glucose (75-100) mg/dL POC Glucose (70-105) Lactic Acid (0.7-2.0) mmol/L Magnesium 3.50 H (1.7-2.3) mg/dL Ammonia 246.0 H (25-60) umol/L Total Creatine Kinase 678 H (55-170) units/L TSH 5.450 H (0.270-4.200) mlU/mL Salicylates (2.8-20.0) mg/dL Acetaminophen (10.0-30.0) ug/mL 03/26/19 03/26/19 03/26/19 Range/Units 15:15 15:15 16:25 PT (12.2-14.9) Sec. INR (0.87-1.13) D-Dimer (0-234) ng/mlDDU Carbon Dioxide (22-30) mmol/L BUN (9-20) mg/dL Creatinine (0.8-1.5) mg/dL Glucose (75-100) mg/dL POC Glucose (70-105) Lactic Acid 7.80 H* (0.7-2.0) mmol/L Magnesium (1.7-2.3) mg/dL Ammonia (25-60) umol/L Total Creatine Kinase (55-170) units/L TSH (0.270-4.200) mlU/mL Salicylates < 0.3 L (2.8-20.0) mg/dL Acetaminophen < 5.0 L (10.0-30.0) ug/mL Assessment and Plan - Patient Problems (1) Sepsis Current Visit: Yes Status: Acute Qualifiers: Severe sepsis acute organ dysfunction type: encephalopathy Plan to address problem: Sepsis protocol: IV antiboitic therapy, IVF resuscitation therapy, CBC, CMP, Blood Cultures, Chest X ray, Urinalysis, (2) Encephalopathy Current Visit: Yes Status: Acute Plan to address problem: CT Head, neuro check, seizure precautions, seizure precautions. (3) Hyperammonemia Current Visit: Yes Status: Acute Plan to address problem: Supportive care, lactulose, repeat ammonia level. (4) Lactic acidosis Current Visit: Yes Status: Acute Plan to address problem: Supportive care, IVF resuscitation therapy, serial lactic acid. (5) Seizure disorder Current Visit: Yes Status: Chronic Plan to address problem: Seizure precautions, neuro check, Keppra, keppra level, (6) DARRON (acute kidney injury) Current Visit: Yes Status: Acute Plan to address problem: IVF resusucitation therapy, monitor uop q shift, (7) Nicotine dependence Current Visit: Yes Status: Acute Qualifiers: Substance use status: in withdrawal Plan to address problem: smoking cessation, supportive care. (8) Polysubstance dependence Current Visit: Yes Status: Acute Plan to address problem: Supportive care, mental health consult when awake and alert only (9) DVT prophylaxis Current Visit: No Status: Acute Plan to address problem: SCD to BLE while in bed, prophylactic heparin
[2019-03-26 18:59] LABS: Mean Corpuscular HGB Conc 31 % (32-34); Mean Corpuscular Volume 101 fl (84-94); Platelet Count 316 K/mm3 (140-440); Red Blood Count 4.84 M/mm3 (3.65-5.03); Red Cell Distribution Width 14.9 % (13.2-15.2)
[2019-03-26 19:00] LABS: Hematocrit 48.6 % (35.5-45.6); Hemoglobin 15.1 gm/dl (11.8-15.2)
[2019-03-26] MEDS ORDERED: ONDANSETRON 4 MG/2 ML INJ IV PRN (19:00)
[2019-03-26] MEDS ORDERED: ACETAMINOPHEN 325 MG TAB PO PRN (19:00)
[2019-03-26] MEDS ORDERED: ALBUTEROL 2.5 MG/3 ML NEBU IH PRN (19:00)
[2019-03-26] MEDS ORDERED: SODIUM BICARB 8.4% 50 MEQ/50 ML SYRINGE IV ONE ×2 (19:06)
[2019-03-26] MEDS ORDERED: SODIUM CHLORIDE 0.9% 1000 ML IV SOLN IV ONE (19:12)
[2019-03-26] MEDS ORDERED: VANCOMYCIN 1,250 MG in SODIUM CHLORIDE 0.9% 500 ML 500 ML IV ONE (19:12)
[2019-03-26] MEDS ORDERED: VANCOMYCIN 1,250 MG in SODIUM CHLORIDE 0.9% 250ML 250 ML IV ONE (19:30)
--- NOTE | 2019-03-26 19:32 | Nuclear Medicine Report ---
TECHNICAL DATA: Inhaled administration followed by immediate static images of chest in multiple projections coordin ed with breathing instructions. Followed by immediate static images of chest in multiple projections post I.V. injection. 7.0 millicuries of 133 Xenon is administered by inhalation. Pulmonary wash-in, equilibrium, and washout phases are performed. Then, 5.0 millicuries of 99m Tc MAA is administered intravenously. FINDINGS: Chest imaging study performed 03/26/2019 is compared The ventilation scan is normal without evidence of delayed washout. The perfusion scan demonstrates h omogeneous uptake without evidence of segmental or subsegmental defects. IMPRESSION: Normal lung scan. Signer Name: Sergei Veronica MD Signed: 03/26/2019 7:27 PM Workstation Name: [id number]
[2019-03-26 19:49] LABS: Basophils % (Manual) 0 % (0.0-1.8); Eosinophils % (Manual) 0 % (0.0-4.3); RBC Morphology Normal; Total Cells Counted 100
[2019-03-26] MEDS ORDERED: VANCOMYCIN PHARMACY TO DOSE IV SCH (20:00)
[2019-03-26] MEDS ORDERED: TERAZOSIN HCL 5 MG PO SCH (22:00)
--- NOTE | 2019-03-26 22:37 | XRay Report ---
CHEST 1 VIEW INDICATION: cp sob tachycardia. COMPARISON: 06/10/2017 TECHNIQUE: AP FINDINGS: SUPPORT DEVICES: None. HEART / MEDIASTINUM: No significant abnormality. LUNGS / PLEURA: No significant pulmonary or pleural abnormality. No pneumothorax. ADDITIONAL FINDINGS: IMPRESSION: 1. No acute findings. Signer Name: Sergei Veronica MD Signed: 03/26/2019 10:32 PM Workstation Name: [id number]
[2019-03-26] MEDS: levETIRAcetam 500 MG TAB PO SCH (22:45)
[2019-03-26] MEDS: FAMOTIDINE 20 MG TAB PO SCH (22:45)
[2019-03-26] MEDS: DOCUSATE SODIUM 100 MG CAP PO SCH (22:45)
[2019-03-26] MEDS: traZODone 100 MG TAB PO SCH (22:46)
[2019-03-26] MEDS: SENNOSIDES 8.6 MG TAB PO SCH (22:46)
[2019-03-26] MEDS: HEPARIN 5,000 UNIT/1 ML VIAL SUB-Q SCH (22:55)
[2019-03-26] MEDS: cefTRIAXone/NS 2 GM/100 ML 2 GM/100 ML BAG IV SCH (22:57)
[2019-03-26] MEDS: PRAZOSIN 1 MG CAP PO SCH (22:58)
--- NOTE | 2019-03-27 08:14 | Progress Note ---
Assessment and Plan Assessment and plan: 64 YO Male with HTN, Seizure Disorder, HLD, PTSD, Nicotine Dependence, Polysubstance Dependence presents to ED for evaluation. Pt is confused, and lethargic with GCS of 9 and unable to provide history at time of my evaluation. Pt was initially alert and responsive upon initial presentation. Pt reported to ED staff that he had experienced recreational use of cocaine and amphetamines and subsequently became confused. Pt friends notified EMS. Upon arrival the patient was found to be in distress and transported to [facility]. Pt seen and evaluated in ED and experienced a witnessed generalized tonic clonic seizure. Pt seen and evaluated in ED and found to have Encephalopathy, DARRON, Acidosis, and Polysubstance Abuse. Pt admitted to medical floor with remote telemetry. Pt treated with IVF resuscitation therapy. No further history is obtainable. Pt is lethargic but is able to protect his airway. Prior admission on 06/10/17 reviewed. All listed medication reconciled at time of admission. QSOFA Score:5 CTAP: IMPRESSION: No acute abnormality. Automated exposure control was utilized to diminish radiation dose. CXR: IMPRESSION: 1. No acute findings CT cervical Spine: IMPRESSION: No acute abnormality. Postoperative changes. CT HEAD/BRAIN: IMPRESSION: No acute intracranial abnormality. Chronic right posterior temporal infarct. Sepsis ruled out SIRS without organ dysfunction Cocain induced psychosis Toxic Metabolic Encephalopathy Hyperammonemia Lactic Acidosis Seizure Disorder Severe Metabolic ACIDOSIS DARRON secondary to vasomotor Nephropathy Leukcytosis likely reactive Polysubstance Abuse Tobacco use disorder HTN Prior CVA Arthritis Nephrolithasis- x 6 previous Back surgeries (C5,6,&7), hernia repair, orchiectomy (secondary to complicated epididymitis), spinal stimulator with subsequent removal. Plan Patient per hx reviewed has recurrent seizures ?compliance with medications. Await AM Labs at this time to further evaluate resolution of Neurology consult Suzanne-psych consult Continue abx, no clear source Monitor Ammonia Level Continue Keppra Tobacco cessation, counselling Continue seizure precautions DISCONTINUE ABX Obtain records Start gentle hydration AND RECHECK LABS IN AM DVT/GI PROPHY History Interval history: Patient seen and examined, Aunty at bedside and patient provides permission to speak with him with the Aunt present. He denies any chest pain, nausea, vomiting diarrhea. He reports that he smoked crack and it was a slip up since he has been sober for sometime. The aunty believes this is secondary to bad company. Hospitalist Physical - Constitutional Vitals: Temp Pulse Resp BP Pulse Ox 98.0 F 110 H 22 132/83 93 03/27/19 05:33 03/27/19 05:33 03/27/19 05:33 03/27/19 05:33 03/27/19 05:33 General appearance: Present: mild distress, well-nourished - EENT Eyes: Present: PERRL, EOM intact ENT: hearing decreased - Neck Neck: Present: supple, normal ROM - Respiratory Respiratory effort: normal Respiratory: bilateral: diminished - Cardiovascular Rhythm: regular Heart Sounds: Present: S1 & S2. Absent: systolic murmur, diastolic murmur - Extremities Extremities: no ischemia, pulses intact, pulses symmetrical, No edema, normal temperature, normal color, Full ROM - Abdominal General gastrointestinal: soft, non-tender, non-distended, normal bowel sounds - Integumentary Integumentary: Present: warm - Psychiatric Psychiatric: appropriate mood/affect, no intact judgment & insight (poor insight) - Neurologic Neurologic: CNII-XII intact, moves all extremities - Allied Health Allied health notes reviewed: nursing Results - Labs CBC & Chem 7: 03/27/19 09:41 03/27/19 09:41 Labs: Laboratory Last Values WBC 27.6 K/mm3 (4.5-11.0) H 03/26/19 Unknown RBC 4.84 M/mm3 (3.65-5.03) 03/26/19 Unknown Hgb 15.1 gm/dl (11.8-15.2) 03/26/19 Unknown Hct 48.6 % (35.5-45.6) H 03/26/19 Unknown MCV 101 fl (84-94) H 03/26/19 Unknown MCH 31 pg (28-32) 03/26/19 Unknown MCHC 31 % (32-34) L 03/26/19 Unknown RDW 14.9 % (13.2-15.2) 03/26/19 Unknown Plt Count 316 K/mm3 (140-440) 03/26/19 Unknown Add Manual Diff Complete 03/26/19 Unknown Total Counted 100 03/26/19 Unknown Seg Neuts % (Manual) 87.0 % (40.0-70.0) H 03/26/19 Unknown Band Neutrophils % 0 % 03/26/19 Unknown Lymphocytes % (Manual) 7.0 % (13.4-35.0) L 03/26/19 Unknown Reactive Lymphs % (Man) 0 % 03/26/19 Unknown Monocytes % (Manual) 6.0 % (0.0-7.3) 03/26/19 Unknown Eosinophils % (Manual) 0 % (0.0-4.3) 03/26/19 Unknown Basophils % (Manual) 0 % (0.0-1.8) 03/26/19 Unknown Metamyelocytes % 0 % 03/26/19 Unknown Myelocytes % 0 % 03/26/19 Unknown Promyelocytes % 0 % 03/26/19 Unknown Blast Cells % 0 % 03/26/19 Unknown Nucleated RBC % Not Reportable 03/26/19 Unknown Seg Neutrophils # Man 24.0 K/mm3 (1.8-7.7) H 03/26/19 Unknown Band Neutrophils # 0.0 K/mm3 03/26/19 Unknown Lymphocytes # (Manual) 1.9 K/mm3 (1.2-5.4) 03/26/19 Unknown Abs React Lymphs (Man) 0.0 K/mm3 03/26/19 Unknown Monocytes # (Manual) 1.7 K/mm3 (0.0-0.8) H 03/26/19 Unknown Eosinophils # (Manual) 0.0 K/mm3 (0.0-0.4) 03/26/19 Unknown Basophils # (Manual) 0.0 K/mm3 (0.0-0.1) 03/26/19 Unknown Metamyelocytes # 0.0 K/mm3 03/26/19 Unknown Myelocytes # 0.0 K/mm3 03/26/19 Unknown Promyelocytes # 0.0 K/mm3 03/26/19 Unknown Blast Cells # 0.0 K/mm3 03/26/19 Unknown WBC Morphology Not Reportable 03/26/19 Unknown Hypersegmented Neuts Not Reportable 03/26/19 Unknown Hyposegmented Neuts Not Reportable 03/26/19 Unknown Hypogranular Neuts Not Reportable 03/26/19 Unknown Smudge Cells Not Reportable 03/26/19 Unknown Toxic Granulation Not Reportable 03/26/19 Unknown Toxic Vacuolation Not Reportable 03/26/19 Unknown Dohle Bodies Not Reportable 03/26/19 Unknown Pelger-Huet Anomaly Not Reportable 03/26/19 Unknown Abhijit Rods Not Reportable 03/26/19 Unknown Platelet Estimate Appears normal 03/26/19 Unknown Clumped Platelets Not Reportable 03/26/19 Unknown Plt Clumps, EDTA Not Reportable 03/26/19 Unknown Large Platelets Not Reportable 03/26/19 Unknown Giant Platelets Not Reportable 03/26/19 Unknown Platelet Satelliting Not Reportable 03/26/19 Unknown Plt Morphology Comment Not Reportable 03/26/19 Unknown RBC Morphology Normal 03/26/19 Unknown Dimorphic RBCs Not Reportable 03/26/19 Unknown Polychromasia Not Reportable 03/26/19 Unknown Hypochromasia Not Reportable 03/26/19 Unknown Poikilocytosis Not Reportable 03/26/19 Unknown Anisocytosis Not Reportable 03/26/19 Unknown Microcytosis Not Reportable 03/26/19 Unknown Macrocytosis Not Reportable 03/26/19 Unknown Spherocytes Not Reportable 03/26/19 Unknown Pappenheimer Bodies Not Reportable 03/26/19 Unknown Sickle Cells Not Reportable 03/26/19 Unknown Target Cells Not Reportable 03/26/19 Unknown Tear Drop Cells Not Reportable 03/26/19 Unknown Ovalocytes Not Reportable 03/26/19 Unknown Helmet Cells Not Reportable 03/26/19 Unknown [place] Bodies Not Reportable 03/26/19 Unknown [place] Rings Not Reportable 03/26/19 Unknown [place] Cells Not Reportable 03/26/19 Unknown Bite Cells Not Reportable 03/26/19 Unknown Crenated Cell Not Reportable 03/26/19 Unknown Elliptocytes Not Reportable 03/26/19 Unknown Acanthocytes (Spur) Not Reportable 03/26/19 Unknown Rouleaux Not Reportable 03/26/19 Unknown Hemoglobin C Crystals Not Reportable 03/26/19 Unknown Schistocytes Not Reportable 03/26/19 Unknown Malaria parasites Not Reportable 03/26/19 Unknown David Bodies Not Reportable 03/26/19 Unknown Hem Pathologist Commnt No 03/26/19 Unknown PT 15.1 Sec. (12.2-14.9) H 03/26/19 15:15 INR 1.20 (0.87-1.13) H 03/26/19 15:15 APTT 25.2 Sec. (24.2-36.6) 03/26/19 15:15 D-Dimer 1577.19 ng/mlDDU (0-234) H 03/26/19 15:15 Sodium 143 mmol/L (137-145) 03/26/19 15:15 Potassium 3.7 mmol/L (3.6-5.0) 03/26/19 15:15 Chloride 99.7 mmol/L (98-107) 03/26/19 15:15 Carbon Dioxide 7 mmol/L (22-30) L* 03/26/19 15:15 Anion Gap 41 mmol/L 03/26/19 15:15 BUN 35 mg/dL (9-20) H 03/26/19 15:15 Creatinine 1.7 mg/dL (0.8-1.5) H 03/26/19 15:15 Estimated GFR 41 ml/min 03/26/19 15:15 BUN/Creatinine Ratio 21 % 03/26/19 15:15 Glucose 178 mg/dL (75-100) H 03/26/19 15:15 POC Glucose 139 (70-105) H 03/26/19 14:37 Osmolality 321 Mosm/kg 03/26/19 15:15 Lactic Acid 7.80 mmol/L (0.7-2.0) H* 03/26/19 16:25 Calcium 9.2 mg/dL (8.4-10.2) 03/26/19 15:15 Magnesium 3.50 mg/dL (1.7-2.3) H 03/26/19 15:15 Total Bilirubin 0.50 mg/dL (0.1-1.2) 03/26/19 16:25 Direct Bilirubin < 0.2 mg/dL (0-0.2) 03/26/19 16:25 AST 40 units/L (5-40) 03/26/19 16:25 ALT 22 units/L (7-56) 03/26/19 16:25 Alkaline Phosphatase 93 units/L (35-129) 03/26/19 16:25 Ammonia 246.0 umol/L (25-60) H 03/26/19 15:15 Total Creatine Kinase 678 units/L (55-170) H 03/26/19 15:15 Total Protein 6.5 g/dL (6.3-8.2) 03/26/19 16:25 Albumin 4.2 g/dL (3.9-5) 03/26/19 16:25 Albumin/Globulin Ratio 1.8 % 03/26/19 16:25 TSH 5.450 mlU/mL (0.270-4.200) H 03/26/19 15:15 Free T4 1.35 ng/dL (0.76-1.46) 03/26/19 15:15 Urine Color Yellow (Yellow) 03/26/19 15:37 Urine Turbidity Clear (Clear) 03/26/19 15:37 Urine pH 6.0 (5.0-7.0) 03/26/19 15:37 Ur Specific [place] 1.018 (1.003-1.030) 03/26/19 15:37 Urine Protein 100 mg/dl mg/dL (Negative) 03/26/19 15:37 Urine Glucose (UA) 50 mg/dL (Negative) 03/26/19 15:37 Urine Ketones 20 mg/dL (Negative) 03/26/19 15:37 Urine Blood Mod (Negative) 03/26/19 15:37 Urine Nitrite Neg (Negative) 03/26/19 15:37 Urine Bilirubin Neg (Negative) 03/26/19 15:37 Urine Urobilinogen < 2.0 mg/dL (<2.0) 03/26/19 15:37 Ur Leukocyte Esterase Neg (Negative) 03/26/19 15:37 Urine WBC (Auto) 1.0 /HPF (0.0-6.0) 03/26/19 15:37 Urine RBC (Auto) 4.0 /HPF (0.0-6.0) 03/26/19 15:37 Urine Bacteria (Auto) 1+ /HPF (Negative) 03/26/19 15:37 Urine Mucus Few /HPF 03/26/19 15:37 Salicylates < 0.3 mg/dL (2.8-20.0) L 03/26/19 15:15 Urine Opiates Screen Presumptive negative 03/26/19 15:37 Urine Methadone Screen Presumptive negative 03/26/19 15:37 Acetaminophen < 5.0 ug/mL (10.0-30.0) L 03/26/19 15:15 Ur Barbiturates Screen Presumptive negative 03/26/19 15:37 Ur Phencyclidine Scrn Presumptive negative 03/26/19 15:37 Ur Amphetamines Screen Presumptive positive 03/26/19 15:37 U Benzodiazepines Scrn Presumptive negative 03/26/19 15:37 Urine Cocaine Screen Presumptive positive 03/26/19 15:37 U Marijuana (THC) Screen Presumptive negative 03/26/19 15:37 Drugs of Abuse Note Disclamer 03/26/19 15:37 Plasma/Serum Alcohol < 0.01 % (0-0.07) 03/26/19 15:15 Active Medications - Current Medications Current Medications: Generic Name Dose Route Start Last Admin Trade Name Freq PRN Reason Stop Dose Admin Acetaminophen 650 mg 03/26/19 19:00 Tylenol PO Q4H PRN Pain MILD(1-3)/Fever >100.5/COWART Albuterol 2.5 mg 03/26/19 19:00 Proventil IH Q4HRT PRN Shortness Of Breath Aspirin 325 mg 03/27/19 10:00 Aspirin PO QDAY [facility] Atorvastatin Calcium 40 mg 03/26/19 22:00 03/26/19 22:46 Lipitor PO 40 mg QHS NIMISHA Administration Cholecalciferol 5,000 unit 03/27/19 10:00 Vitamin D3 PO QDAY NIMISHA Docusate Sodium 100 mg 03/26/19 22:00 03/26/19 22:45 Colace PO 100 mg BID NIMISHA Administration Famotidine 20 mg 03/26/19 22:00 03/26/19 22:45 Pepcid PO 20 mg BID NIMISHA Administration Heparin Sodium (Porcine) 5,000 unit 03/26/19 22:00 03/26/19 22:55 Heparin SUB-Q 5,000 unit Q12HR NIMISHA Administration Ceftriaxone Sodium 2 gm in 100 mls @ 200 mls/hr 03/26/19 22:00 03/26/19 22:57 Rocephin/Ns 2 Gm/100 Ml IV 200 mls/hr Q12HR NIMISHA Administration Protocol Vancomycin HCl 1 gm in 250 mls @ 166.667 mls/hr 03/27/19 20:00 Vancomycin/Ns 1 Gm/250 Ml IV Q24H NIMISHA Levetiracetam 1,500 mg 03/26/19 22:00 03/26/19 22:45 Keppra PO 1,500 mg BID NIMISHA Administration Lorazepam 2 mg 03/26/19 15:04 03/26/19 22:46 Ativan IM 2 mg Q4HR PRN Administration Agitation Nicotine 21 mg 03/27/19 10:00 Habitrol TD DAILY NIMISHA Ondansetron HCl 4 mg 03/26/19 19:00 Zofran IV Q8H PRN Nausea And Vomiting Prazosin HCl 1 mg 03/26/19 22:00 03/26/19 22:58 Prazosin PO 1 mg QHS NIMISHA Administration Senna 8.6 mg 03/26/19 22:00 03/26/19 22:46 Senokot PO 8.6 mg Q12HR NIMISHA Administration Sodium Chloride 10 ml 03/26/19 22:00 03/26/19 22:46 Sodium Chloride Flush Syringe 10 Ml IV 10 ml BID NIMISHA Administration Sodium Chloride 10 ml 03/26/19 19:00 Sodium Chloride Flush Syringe 10 Ml IV PRN PRN LINE FLUSH Trazodone HCl 100 mg 03/26/19 22:00 03/26/19 22:46 Desyrel PO 100 mg HS NIMISHA Administration
[2019-03-27] MEDS: cefTRIAXone/NS 2 GM/100 ML 2 GM/100 ML BAG IV SCH (09:50)
[2019-03-27] MEDS: ASPIRIN 325 MG TAB PO SCH (09:51)
[2019-03-27] MEDS: FAMOTIDINE 20 MG TAB PO SCH ×2 (09:51→22:10)
[2019-03-27] MEDS: levETIRAcetam 500 MG TAB PO SCH ×2 (09:51→22:10)
[2019-03-27] MEDS: NICOTINE 21 MG/24 HR PATCH TD SCH (09:51)
[2019-03-27] MEDS: DOCUSATE SODIUM 100 MG CAP PO SCH ×2 (09:51→22:10)
[2019-03-27] MEDS: SENNOSIDES 8.6 MG TAB PO SCH ×2 (09:52→22:10)
[2019-03-27] MEDS: HEPARIN 5,000 UNIT/1 ML VIAL SUB-Q SCH ×2 (09:52→22:11)
[2019-03-27] MEDS: CHOLECALCIFEROL (VIT D3) 5,000 UNIT TAB PO SCH (09:54)
[2019-03-27] MEDS ORDERED: CHOLECALCIFEROL 5000 UNIT PO SCH (10:00)
[2019-03-27 10:12] LABS: Basophils # (Auto) 0.1 K/mm3 (0.0-0.1); Basophils % (Auto) 0.8 % (0.0-1.8); Eosinophils # (Auto) 0.1 K/mm3 (0.0-0.4); Eosinophils % (Auto) 0.9 % (0.0-4.3); Hematocrit 37.9 % (35.5-45.6); Hemoglobin 12.6 gm/dl (11.8-15.2); Lymphocytes # (Auto) 1.2 K/mm3 (1.2-5.4); Mean Corpuscular HGB Conc 33 % (32-34); Mean Corpuscular Volume 93 fl (84-94); Monocytes # (Auto) 0.8 K/mm3 (0.0-0.8); Monocytes % (Auto) 9.3 % (0.0-7.3); Platelet Count 215 K/mm3 (140-440); Red Blood Count 4.07 M/mm3 (3.65-5.03); Red Cell Distribution Width 14.2 % (13.2-15.2)
[2019-03-27 10:21] LABS: Calcium 7.7 mg/dL (8.4-10.2)
[2019-03-27] MEDS: SODIUM BICARBONATE 650 MG TAB PO SCH ×2 (16:00→22:11)
[2019-03-27] MEDS ORDERED: VANCOMYCIN/NS 1 GM/250 ML 1 GM/250 ML BAG IV SCH (20:00)
[2019-03-27] MEDS: SODIUM CHLORIDE 0.9% 1000 ML 1,000 ML IV SCH (22:09)
[2019-03-27] MEDS: traZODone 100 MG TAB PO SCH (22:11)
[2019-03-27] MEDS: PRAZOSIN 1 MG CAP PO SCH (22:13)
[2019-03-28 05:46] LABS: Hemoglobin 12.5 gm/dl (11.8-15.2); Mean Corpuscular HGB Conc 34 % (32-34); Mean Corpuscular Volume 93 fl (84-94); Platelet Count 213 K/mm3 (140-440); Red Cell Distribution Width 14.1 % (13.2-15.2)
[2019-03-28 05:56] LABS: Albumin 3.8 g/dL (3.9-5); Calcium 8.2 mg/dL (8.4-10.2)
[2019-03-28] MEDS: SODIUM CHLORIDE 0.9% 1000 ML 1,000 ML IV SCH (07:00)
[2019-03-28] MEDS: SENNOSIDES 8.6 MG TAB PO SCH ×3 (09:31→22:50)
[2019-03-28] MEDS: ASPIRIN 325 MG TAB PO SCH (09:31)
[2019-03-28] MEDS: FAMOTIDINE 20 MG TAB PO SCH ×2 (09:31→22:50)
[2019-03-28] MEDS: levETIRAcetam 500 MG TAB PO SCH ×2 (09:31→22:49)
[2019-03-28] MEDS: NICOTINE 21 MG/24 HR PATCH TD SCH (09:31)
[2019-03-28] MEDS: DOCUSATE SODIUM 100 MG CAP PO SCH ×3 (09:31→22:50)
[2019-03-28] MEDS: CHOLECALCIFEROL (VIT D3) 5,000 UNIT TAB PO SCH (09:32)
[2019-03-28] MEDS: HEPARIN 5,000 UNIT/1 ML VIAL SUB-Q SCH ×2 (09:33→22:52)
[2019-03-28] MEDS ORDERED: POTASSIUM CHLORIDE ER 20 MEQ TAB PO ONE (10:00)
--- NOTE | 2019-03-28 12:03 | Progress Note ---
Assessment and Plan Assessment and plan: 64 YO Male with HTN, Seizure Disorder, HLD, PTSD, Nicotine Dependence, Polysubstance Dependence presents to ED for evaluation. Pt is confused, and lethargic with GCS of 9 and unable to provide history at time of my evaluation. Pt was initially alert and responsive upon initial presentation. Pt reported to ED staff that he had experienced recreational use of cocaine and amphetamines and subsequently became confused. Pt friends notified EMS. Upon arrival the patient was found to be in distress and transported to [facility]. Pt seen and evaluated in ED and experienced a witnessed generalized tonic clonic seizure. Pt seen and evaluated in ED and found to have Encephalopathy, DARRON, Acidosis, and Polysubstance Abuse. Pt admitted to medical floor with remote telemetry. Pt treated with IVF resuscitation therapy. No further history is obtainable. Pt is lethargic but is able to protect his airway. Prior admission on 06/10/17 reviewed. All listed medication reconciled at time of admission. QSOFA Score:5 CTAP: IMPRESSION: No acute abnormality. Automated exposure control was utilized to diminish radiation dose. CXR: IMPRESSION: 1. No acute findings CT cervical Spine: IMPRESSION: No acute abnormality. Postoperative changes. CT HEAD/BRAIN: IMPRESSION: No acute intracranial abnormality. Chronic right posterior temporal infarct. * Some hallucination overnight but improved today, Per Aunty patient not quit at baseline * Monitor one additional night * Meds renewed in anticipation for discharge in am Sepsis ruled out SIRS without organ dysfunction Cocain induced psychosis Toxic Metabolic Encephalopathy Hyperammonemia Lactic Acidosis Seizure Disorder Severe Metabolic ACIDOSIS DARRON secondary to vasomotor Nephropathy-Resolved Leukcytosis likely reactive Polysubstance Abuse Tobacco use disorder HTN Prior CVA Arthritis Nephrolithasis- x 6 previous Back surgeries (C5,6,&7), hernia repair, orchiectomy (secondary to complicated epididymitis), spinal stimulator with subsequent removal. Plan Per discussion, patient non complaint with medications. Neurology input noted Monitor off abx Discontinue fluids, renal function improved Monitor Ammonia Level Continue Keppra Tobacco cessation, counselling Continue seizure precautions No records available DVT/GI PROPHY History Interval history: Patient seen and examined, overnight was reported to have visual hallucination but improved today, still some lethargy Hospitalist Physical - Constitutional Vitals: Temp Pulse Resp BP Pulse Ox 98.9 F 90 18 137/85 94 03/28/19 05:19 03/28/19 05:19 03/28/19 05:19 03/28/19 05:19 03/28/19 05:19 General appearance: Present: mild distress, well-nourished - EENT Eyes: Present: PERRL, EOM intact ENT: hearing decreased - Neck Neck: Present: supple, normal ROM - Respiratory Respiratory effort: normal Respiratory: bilateral: CTA - Cardiovascular Rhythm: regular Heart Sounds: Present: S1 & S2. Absent: systolic murmur, diastolic murmur - Extremities Extremities: no ischemia, pulses intact, pulses symmetrical, No edema, normal temperature, normal color, Full ROM Peripheral Pulses: within normal limits - Abdominal General gastrointestinal: soft, non-tender, non-distended, normal bowel sounds - Integumentary Integumentary: Present: warm - Psychiatric Psychiatric: appropriate mood/affect, no intact judgment & insight, no memory intact - Neurologic Neurologic: CNII-XII intact, moves all extremities - Allied Health Allied health notes reviewed: nursing Results - Labs CBC & Chem 7: 03/28/19 05:00 03/28/19 05:00 Labs: Laboratory Last Values WBC 6.3 K/mm3 (4.5-11.0) 03/28/19 05:00 RBC 4.00 M/mm3 (3.65-5.03) 03/28/19 05:00 Hgb 12.5 gm/dl (11.8-15.2) 03/28/19 05:00 Hct 37.0 % (35.5-45.6) 03/28/19 05:00 MCV 93 fl (84-94) 03/28/19 05:00 MCH 31 pg (28-32) 03/28/19 05:00 MCHC 34 % (32-34) 03/28/19 05:00 RDW 14.1 % (13.2-15.2) 03/28/19 05:00 Plt Count 213 K/mm3 (140-440) 03/28/19 05:00 Lymph % (Auto) 13.0 % (13.4-35.0) L 03/27/19 09:41 Sharp % (Auto) 9.3 % (0.0-7.3) H 03/27/19 09:41 Eos % (Auto) 0.9 % (0.0-4.3) 03/27/19 09:41 Baso % (Auto) 0.8 % (0.0-1.8) 03/27/19 09:41 Lymph # 1.2 K/mm3 (1.2-5.4) 03/27/19 09:41 Sharp # 0.8 K/mm3 (0.0-0.8) 03/27/19 09:41 Eos # 0.1 K/mm3 (0.0-0.4) 03/27/19 09:41 Baso # 0.1 K/mm3 (0.0-0.1) 03/27/19 09:41 Add Manual Diff Complete 03/26/19 Unknown Total Counted 100 03/26/19 Unknown Seg Neutrophils % 76.0 % (40.0-70.0) H 03/27/19 09:41 Seg Neuts % (Manual) 87.0 % (40.0-70.0) H 03/26/19 Unknown Band Neutrophils % 0 % 03/26/19 Unknown Lymphocytes % (Manual) 7.0 % (13.4-35.0) L 03/26/19 Unknown Reactive Lymphs % (Man) 0 % 03/26/19 Unknown Monocytes % (Manual) 6.0 % (0.0-7.3) 03/26/19 Unknown Eosinophils % (Manual) 0 % (0.0-4.3) 03/26/19 Unknown Basophils % (Manual) 0 % (0.0-1.8) 03/26/19 Unknown Metamyelocytes % 0 % 03/26/19 Unknown Myelocytes % 0 % 03/26/19 Unknown Promyelocytes % 0 % 03/26/19 Unknown Blast Cells % 0 % 03/26/19 Unknown Nucleated RBC % Not Reportable 03/26/19 Unknown Seg Neutrophils # 6.9 K/mm3 (1.8-7.7) 03/27/19 09:41 Seg Neutrophils # Man 24.0 K/mm3 (1.8-7.7) H 03/26/19 Unknown Band Neutrophils # 0.0 K/mm3 03/26/19 Unknown Lymphocytes # (Manual) 1.9 K/mm3 (1.2-5.4) 03/26/19 Unknown Abs React Lymphs (Man) 0.0 K/mm3 03/26/19 Unknown Monocytes # (Manual) 1.7 K/mm3 (0.0-0.8) H 03/26/19 Unknown Eosinophils # (Manual) 0.0 K/mm3 (0.0-0.4) 03/26/19 Unknown Basophils # (Manual) 0.0 K/mm3 (0.0-0.1) 03/26/19 Unknown Metamyelocytes # 0.0 K/mm3 03/26/19 Unknown Myelocytes # 0.0 K/mm3 03/26/19 Unknown Promyelocytes # 0.0 K/mm3 03/26/19 Unknown Blast Cells # 0.0 K/mm3 03/26/19 Unknown WBC Morphology Not Reportable 03/26/19 Unknown Hypersegmented Neuts Not Reportable 03/26/19 Unknown Hyposegmented Neuts Not Reportable 03/26/19 Unknown Hypogranular Neuts Not Reportable 03/26/19 Unknown Smudge Cells Not Reportable 03/26/19 Unknown Toxic Granulation Not Reportable 03/26/19 Unknown Toxic Vacuolation Not Reportable 03/26/19 Unknown Dohle Bodies Not Reportable 03/26/19 Unknown Pelger-Huet Anomaly Not Reportable 03/26/19 Unknown Abhijit Rods Not Reportable 03/26/19 Unknown Platelet Estimate Appears normal 03/26/19 Unknown Clumped Platelets Not Reportable 03/26/19 Unknown Plt Clumps, EDTA Not Reportable 03/26/19 Unknown Large Platelets Not Reportable 03/26/19 Unknown Giant Platelets Not Reportable 03/26/19 Unknown Platelet Satelliting Not Reportable 03/26/19 Unknown Plt Morphology Comment Not Reportable 03/26/19 Unknown RBC Morphology Normal 03/26/19 Unknown Dimorphic RBCs Not Reportable 03/26/19 Unknown Polychromasia Not Reportable 03/26/19 Unknown Hypochromasia Not Reportable 03/26/19 Unknown Poikilocytosis Not Reportable 03/26/19 Unknown Anisocytosis Not Reportable 03/26/19 Unknown Microcytosis Not Reportable 03/26/19 Unknown Macrocytosis Not Reportable 03/26/19 Unknown Spherocytes Not Reportable 03/26/19 Unknown Pappenheimer Bodies Not Reportable 03/26/19 Unknown Sickle Cells Not Reportable 03/26/19 Unknown Target Cells Not Reportable 03/26/19 Unknown Tear Drop Cells Not Reportable 03/26/19 Unknown Ovalocytes Not Reportable 03/26/19 Unknown Helmet Cells Not Reportable 03/26/19 Unknown [place] Bodies Not Reportable 03/26/19 Unknown Hiller Rings Not Reportable 03/26/19 Unknown [place] Cells Not Reportable 03/26/19 Unknown Bite Cells Not Reportable 03/26/19 Unknown Crenated Cell Not Reportable 03/26/19 Unknown Elliptocytes Not Reportable 03/26/19 Unknown Acanthocytes (Spur) Not Reportable 03/26/19 Unknown Rouleaux Not Reportable 03/26/19 Unknown Hemoglobin C Crystals Not Reportable 03/26/19 Unknown Schistocytes Not Reportable 03/26/19 Unknown Malaria parasites Not Reportable 03/26/19 Unknown David Bodies Not Reportable 03/26/19 Unknown Hem Pathologist Commnt No 03/26/19 Unknown PT 15.1 Sec. (12.2-14.9) H 03/26/19 15:15 INR 1.20 (0.87-1.13) H 03/26/19 15:15 APTT 25.2 Sec. (24.2-36.6) 03/26/19 15:15 D-Dimer 1577.19 ng/mlDDU (0-234) H 03/26/19 15:15 Sodium 143 mmol/L (137-145) 03/28/19 05:00 Potassium 3.4 mmol/L (3.6-5.0) L 03/28/19 05:00 Chloride 108.2 mmol/L (98-107) H 03/28/19 05:00 Carbon Dioxide 22 mmol/L (22-30) 03/28/19 05:00 Anion Gap 16 mmol/L 03/28/19 05:00 BUN 16 mg/dL (9-20) 03/28/19 05:00 Creatinine 1.4 mg/dL (0.8-1.5) 03/28/19 05:00 Estimated GFR 51 ml/min 03/28/19 05:00 BUN/Creatinine Ratio 11 % 03/28/19 05:00 Glucose 114 mg/dL (75-100) H 03/28/19 05:00 POC Glucose 139 (70-105) H 03/26/19 14:37 Osmolality 321 Mosm/kg 03/26/19 15:15 Lactic Acid 0.80 mmol/L (0.7-2.0) 03/27/19 09:41 Calcium 8.2 mg/dL (8.4-10.2) L 03/28/19 05:00 Magnesium 3.50 mg/dL (1.7-2.3) H 03/26/19 15:15 Total Bilirubin 0.30 mg/dL (0.1-1.2) 03/28/19 05:00 Direct Bilirubin < 0.2 mg/dL (0-0.2) 03/26/19 16:25 AST 37 units/L (5-40) 03/28/19 05:00 ALT 22 units/L (7-56) 03/28/19 05:00 Alkaline Phosphatase 101 units/L (35-129) 03/28/19 05:00 Ammonia 246.0 umol/L (25-60) H 03/26/19 15:15 Total Creatine Kinase 678 units/L (55-170) H 03/26/19 15:15 Total Protein 6.5 g/dL (6.3-8.2) 03/28/19 05:00 Albumin 3.8 g/dL (3.9-5) L 03/28/19 05:00 Albumin/Globulin Ratio 1.4 % 03/28/19 05:00 TSH 5.450 mlU/mL (0.270-4.200) H 03/26/19 15:15 Free T4 1.35 ng/dL (0.76-1.46) 03/26/19 15:15 Urine Color Yellow (Yellow) 03/26/19 15:37 Urine Turbidity Clear (Clear) 03/26/19 15:37 Urine pH 6.0 (5.0-7.0) 03/26/19 15:37 Ur Specific [place] 1.018 (1.003-1.030) 03/26/19 15:37 Urine Protein 100 mg/dl mg/dL (Negative) 03/26/19 15:37 Urine Glucose (UA) 50 mg/dL (Negative) 03/26/19 15:37 Urine Ketones 20 mg/dL (Negative) 03/26/19 15:37 Urine Blood Mod (Negative) 03/26/19 15:37 Urine Nitrite Neg (Negative) 03/26/19 15:37 Urine Bilirubin Neg (Negative) 03/26/19 15:37 Urine Urobilinogen < 2.0 mg/dL (<2.0) 03/26/19 15:37 Ur Leukocyte Esterase Neg (Negative) 03/26/19 15:37 Urine WBC (Auto) 1.0 /HPF (0.0-6.0) 03/26/19 15:37 Urine RBC (Auto) 4.0 /HPF (0.0-6.0) 03/26/19 15:37 Urine Bacteria (Auto) 1+ /HPF (Negative) 03/26/19 15:37 Urine Mucus Few /HPF 03/26/19 15:37 Salicylates < 0.3 mg/dL (2.8-20.0) L 03/26/19 15:15 Urine Opiates Screen Presumptive negative 03/26/19 15:37 Urine Methadone Screen Presumptive negative 03/26/19 15:37 Acetaminophen < 5.0 ug/mL (10.0-30.0) L 03/26/19 15:15 Ur Barbiturates Screen Presumptive negative 03/26/19 15:37 Ur Phencyclidine Scrn Presumptive negative 03/26/19 15:37 Ur Amphetamines Screen Presumptive positive 03/26/19 15:37 U Benzodiazepines Scrn Presumptive negative 03/26/19 15:37 Urine Cocaine Screen Presumptive positive 03/26/19 15:37 U Marijuana (THC) Screen Presumptive negative 03/26/19 15:37 Drugs of Abuse Note Disclamer 03/26/19 15:37 Plasma/Serum Alcohol < 0.01 % (0-0.07) 03/26/19 15:15 Active Medications - Current Medications Current Medications: Generic Name Dose Route Start Last Admin Trade Name Freq PRN Reason Stop Dose Admin Acetaminophen 650 mg 03/26/19 19:00 Tylenol PO Q4H PRN Pain MILD(1-3)/Fever >100.5/COWART Albuterol 2.5 mg 03/26/19 19:00 Proventil IH Q4HRT PRN Shortness Of Breath Aspirin 325 mg 03/27/19 10:00 03/28/19 09:31 Aspirin PO 325 mg QDAY NIMISHA Administration Atorvastatin Calcium 40 mg 03/26/19 22:00 03/27/19 22:10 Lipitor PO 40 mg QHS NIMISHA Administration Cholecalciferol 5,000 unit 03/27/19 10:00 03/28/19 09:32 Vitamin D3 PO 5,000 unit QDAY NIMISHA Administration Docusate Sodium 100 mg 03/26/19 22:00 03/28/19 09:31 Colace PO 100 mg BID NIMISHA Administration Famotidine 20 mg 03/26/19 22:00 03/28/19 09:31 Pepcid PO 20 mg BID NIMISHA Administration Heparin Sodium (Porcine) 5,000 unit 03/26/19 22:00 03/28/19 09:33 Heparin SUB-Q 5,000 unit Q12HR NIMISHA Administration Sodium Chloride 1,000 mls @ 150 mls/hr 03/27/19 12:00 03/28/19 07:00 Nacl 0.9% 1000 Ml IV 150 mls/hr DIRECT NIMISHA Administration Levetiracetam 1,500 mg 03/26/19 22:00 03/28/19 09:31 Keppra PO 1,500 mg BID NIMISHA Administration Lorazepam 2 mg 03/26/19 15:04 03/26/19 22:46 Ativan IM 2 mg Q4HR PRN Administration Agitation Nicotine 21 mg 03/27/19 10:00 03/28/19 09:31 Habitrol TD 21 mg DAILY NIMISHA Administration Ondansetron HCl 4 mg 03/26/19 19:00 Zofran IV Q8H PRN Nausea And Vomiting Prazosin HCl 1 mg 03/26/19 22:00 03/27/19 22:13 Prazosin PO 1 mg QHS NIMISHA Administration Senna 8.6 mg 03/26/19 22:00 03/28/19 09:31 Senokot PO 8.6 mg Q12HR NIMISHA Administration Sodium Chloride 10 ml 03/26/19 22:00 03/28/19 09:30 Sodium Chloride Flush Syringe 10 Ml IV 10 ml BID NIMISHA Administration Sodium Chloride 10 ml 03/26/19 19:00 Sodium Chloride Flush Syringe 10 Ml IV PRN PRN LINE FLUSH Trazodone HCl 100 mg 03/26/19 22:00 03/27/19 22:11 Desyrel PO 100 mg HS NIMISHA Administration Nutrition/Malnutrition Assess - Dietary Evaluation Nutrition/Malnutrition Findings: Nutrition Notes Start: 03/27/19 09:03 Freq: Status: Active Protocol: Document 03/27/19 09:03 SRAVANTHI (Rec: 03/27/19 10:16 SRAVANTHI [id number]) Co-Sign 03/27/19 09:03 KH Nutrition Notes Need for Assessment generated from: rough rice tender Initial or Follow up Assessment Current Diagnosis Acute Kidney Injury,Decubitus( Pressure Ulcer),Hypertension Other Pertinent Diagnosis Seizure disorder, Encephalopathy, Nicotine dependence, PTSD Current Diet NPO Labs/Tests BUN 35 Cr 1.7 Na 178 Pertinent Medications Lipitor Height 5 ft 7 in Weight 68 kg Mentcle Body Weight (kg) 67.27 BMI 23.4 Intake Prior to Admission Excellent Weight Status Appropriate Subjective/Other Information RD screen for skin risk assessment. Derian score 18. Pt's chart stated he had a pressure ulcer on his heel. Pt 's aunt stated that he has been eating well and has had an appetite. Burn Absent Trauma Absent GI Symptoms None Minimum of two criteria No physical signs of malnutrition #1 Nutrition Diagnosis Increased nutrient needs ( specify in comment below) Comments: Protein Etiology Wound healing As Evidenced by Signs and Symptoms Pressure ulcer on left foot Is patient on ventilator? No Is Patient Ambulatory and/or Out of Bed Yes REE-([facility]-ambulatory/OOB) [ 1870.219 [id number]] Calculation Used for Recommendations [facility] Additional Notes Protein: 54-68g/kg (0.8-1g/kg) Fluid: 1mL/kcal Nutrition Intervention Change Diet Order: Advance diet when medically feasible Add Supplement/Snack (indicate name/kcal Ammon BID once diet is /protein ) advanced Provides kCal: 190 Provides Protein (gm) 5 Goal #1 Diet advancement Goal #2 Wound healing Anticipated Discharge Needs: Renal diet Follow-Up By: 04/01/19 Additional Comments F/U for diet advancement and order Ammon
[2019-03-28] MEDS ORDERED: LORATADINE (NF) 10 MG TAB PO ONE (22:15)
[2019-03-28] MEDS: traZODone 100 MG TAB PO SCH (22:50)
[2019-03-28] MEDS: PRAZOSIN 1 MG CAP PO SCH (22:51)
--- NOTE | 2019-03-29 00:48 | Ultrasound Report ---
Renal ultrasound. 03/28/2019. HISTORY: Acute renal insufficiency. FINDINGS: Right kidney measures 10.9 x 5.5 cm. Cortex measures 1.4 cm. Left kidney measures 12.7 x 4.7 cm. Cortex measures 1.4 cm. A small cluster of nonobstructing stones measures 5 mm. Cortical echogenicity is normal. Negative for mass or obstruction. The bladder contains moderate urin e. IMPRESSION: 1. Small nonobstructing left renal stones. 2. Negative for obstruction. Signer Name: Fady Garcias MD Signed: 03/29/2019 12:44 AM Workstation Name: [id number]
[2019-03-29] MEDS: ASPIRIN 325 MG TAB PO SCH (10:07)
[2019-03-29] MEDS: levETIRAcetam 500 MG TAB PO SCH (10:08)
[2019-03-29] MEDS: SENNOSIDES 8.6 MG TAB PO SCH (10:08)
[2019-03-29] MEDS: DOCUSATE SODIUM 100 MG CAP PO SCH (10:09)
[2019-03-29] MEDS: NICOTINE 21 MG/24 HR PATCH TD SCH (10:09)
[2019-03-29] MEDS: FAMOTIDINE 20 MG TAB PO SCH (10:09)
[2019-03-29] MEDS: HEPARIN 5,000 UNIT/1 ML VIAL SUB-Q SCH (10:10)
[2019-03-29] MEDS: CHOLECALCIFEROL (VIT D3) 5,000 UNIT TAB PO SCH (10:47)
--- NOTE | 2019-03-29 14:54 | Discharge Summary ---
Providers - Providers Date of Admission: 03/26/19 19:00 Date of discharge: 03/29/19 Attending physician: JAMAL MIXON 03/27/19 11:04 Consult Geriatric-Psych [CONS] Routine Consulting Provider: Reason For Exam: depression, Primary care physician: MAT CUTTER Hospitalization Condition: Fair Pertinent studies: CT scan head unremarkable. CT scan cervical neck films unremarkable. Renal ultrasound small nonobstructing stones. Hospital course: Patient presents after cocaine induced psychosis metabolic encephalopathy seizure polysubstance abuse. Has resolved stable for discharge. Patient's CT head only showed chronic right posterior temporal infarct. Patient back to baseline alert and oriented. Disposition: DC-01 TO HOME OR SELFCARE - Discharge Diagnoses (1) Altered mental status Status: Acute Qualifiers: (2) Encephalopathy Status: Acute (3) Nicotine dependence Status: Acute Qualifiers: Substance use status: in withdrawal (4) Polysubstance dependence Status: Acute (5) Seizure disorder Status: Chronic (6) Rotator cuff tear, non-traumatic Status: Acute Core Measure Documentation - Palliative Care Palliative Care/ Comfort Measures: Not Applicable - Core Measures Any of the following diagnoses?: none Exam - Constitutional Vitals: Temp Pulse Resp BP Pulse Ox 98.3 F 101 H 20 119/79 94 03/29/19 05:22 03/29/19 05:22 03/29/19 05:22 03/29/19 05:22 03/29/19 05:22 General appearance: Present: no acute distress, well-nourished - EENT Eyes: Present: PERRL ENT: hearing intact, clear oral mucosa - Neck Neck: Present: supple, normal ROM - Respiratory Respiratory effort: normal Respiratory: bilateral: CTA - Cardiovascular Heart Sounds: Present: S1 & S2. Absent: rub, click - Extremities Extremities: pulses symmetrical, No edema Peripheral Pulses: within normal limits - Abdominal General gastrointestinal: Present: soft, non-tender, non-distended, normal bowel sounds Male genitourinary: Present: normal - Integumentary Integumentary: Present: clear, warm, dry - Musculoskeletal Musculoskeletal: gait normal, strength equal bilaterally - Psychiatric Psychiatric: appropriate mood/affect, intact judgment & insight - Neurologic Neurologic: CNII-XII intact, moves all extremities Plan Activity: fall precautions Weight Bearing Status: Full Weight Bearing Diet: low cholesterol Follow up with: PRIMARY CAREMD [Primary Care Provider] - 3-5 Days Prescriptions: Aspirin 325 mg PO QDAY #30 tablet Docusate Sodium [Colace CAP] 100 mg PO BID #14 capsule traZODone [Desyrel] 100 mg PO HS #14 tablet Nicotine [Habitrol] 21 mg TD DAILY #30 patch levETIRAcetam [Keppra TAB] 1,500 mg PO BID #180 tablet AtorvaSTATin [Lipitor] 40 mg PO QHS #30 tab Famotidine [Pepcid] 20 mg PO DAILY #30 tablet Terazosin HCl 5 mg PO HS #30 cap Cholecalciferol (Vitamin D3) [Vitamin D3 5,000 UNIT] 5,000 unit PO DAILY #60 capsule
[2019-03-29 17:05] VITALS: BP 134/84
== END 2019-03-29 16:15 | disposition home or self-care (01) | DRG 917 ==
LOC: ED 14:10 → 3A 19:00
PROVIDERS: ADMIT Internal Medicine; ATTEND Internal Medicine
DX: T40.5X1A Poisoning by cocaine, accidental (unintentional), initial encounter (principal); N17.0 Acute kidney failure with tubular necrosis; G92 Toxic encephalopathy; E87.2 Acidosis; E72.20 Disorder of urea cycle metabolism, unspecified; F17.213 Nicotine dependence, cigarettes, with withdrawal; R65.10 Systemic inflammatory response syndrome (SIRS) of non-infectious origin without acute organ dysfunction; F14.20 Cocaine dependence, uncomplicated; G89.29 Other chronic pain; N40.0 Benign prostatic hyperplasia without lower urinary tract symptoms; M75.102 Unspecified rotator cuff tear or rupture of left shoulder, not specified as traumatic; F10.20 Alcohol dependence, uncomplicated; Y90.9 Presence of alcohol in blood, level not specified; I10 Essential (primary) hypertension; G40.909 Epilepsy, unspecified, not intractable, without status epilepticus; Z82.49 Family history of ischemic heart disease and other diseases of the circulatory system; Z90.79 Acquired absence of other genital organ(s); Z88.1 Allergy status to other antibiotic agents; Z88.0 Allergy status to penicillin; Z88.8 Allergy status to other drugs, medicaments and biological substances; Z79.82 Long term (current) use of aspirin; Z79.899 Other long term (current) drug therapy; Z71.6 Tobacco abuse counseling; Z86.73 Personal history of transient ischemic attack (TIA), and cerebral infarction without residual deficits; Z87.442 Personal history of urinary calculi; Y92.098 Other place in other non-institutional residence as the place of occurrence of the external cause
CPT/HCPCS: 36415; 70450; 71045; 72125; 74176; 76770; 78582; 80048; 80053; 80076; 80307; 80320; 81001; 82140; 82550; 82962; 83735; 83930; 84439; 84443; 85007; 85025; 85027; 85379; 85610; 85730; 87040; 93005; 93010; 96360; G0378; A9270-GY; A9540; A9558; G0480; J0696; J1644; J1953; J2060; J3360; J3370; J7030; J7050

== ENCOUNTER 2019-05-29 04:28 | Emergency (ER) | payer MEDICARE ==
[2019-05-29 05:33] LABS: Hematocrit 44.6 % (35.5-45.6); Hemoglobin 15.3 gm/dl (11.8-15.2); Mean Corpuscular HGB Conc 34 % (32-34); Mean Corpuscular Volume 91 fl (84-94); Platelet Count 230 K/mm3 (140-440); Red Blood Count 4.92 M/mm3 (3.65-5.03); Red Cell Distribution Width 13.9 % (13.2-15.2)
[2019-05-29 05:43] LABS: INR 1.03 (0.87-1.13)
[2019-05-29 06:00] LABS: Alanine Aminotransferase 14 units/L (7-56); BUN/Creatinine Ratio 22; Blood Urea Nitrogen 26 mg/dL (9-20); Calcium 9.5 mg/dL (8.4-10.2); Hemolysis Index 13
[2019-05-29] MEDS ORDERED: LORazepam 2 MG/ML VIAL IV ONE (06:15)
[2019-05-29] MEDS ORDERED: levETIRAcetam 1000 MG/NS 0.75% 1,000 MG/100 ML BAG IV ONE (06:15)
--- NOTE | 2019-05-29 06:31 | Emergency Department Report ---
HPI - General Chief Complaint: Neuro Symptoms/Deficit Time Seen by Provider: 05/29/19 06:00 - HPI HPI: 64-year-old male presents to the emergency department, via EMS, with the complaint of possible seizures versus syncopal episode. Patient says he has had some uncontrolled tremors going on over the past few days. He does admit to a seizure history but says he has been compliant with his Keppra as he was recently moving and may have lost his prescription. There was some episode, just prior to presentation, where he was at a friend's house trying to get some help and seems to have passed out. He says that it could have been a seizure b ut the patient's friend, or the person who called 911, is not at bedside. Patient has a past medical history of CVA 2, hypertension, kidney stones, chronic back pains, enlarged prostate, and seizures. He does admit to a history of methamphetamine use and questionably may have used some recently. ED Past Medical Hx - Past Medical History Previous Medical History?: Yes Hx Hypertension: Yes (2009) Hx CVA: Yes (2011) Hx Congestive Heart Failure: No Hx Diabetes: No Hx Renal Disease: Yes (Prostate) Hx Arthritis: Yes (BACK, NECK SHOULDER) Hx Seizures: Yes Hx Kidney Stones: Yes (X6 OCCURANCES) Hx Asthma: No Hx COPD: No Hx HIV: No Additional medical history: Chronic back pain, pressure ulcer on left heel, torn tendons in right shoulder. Enlarged prostate - Surgical History Past Surgical History?: Yes Additional Surgical History: Back surgeries (C5,6,&7), hernia repair, orchiectomy (secondary to complicated epididymitis), spinal stimulator with subsequent removal. - Social History Smoking Status: Heavy Tobacco Smoker Substance Use Type: Methamphetamines - Medications Home Medications: Home Medications Medication Instructions Recorded Confirmed Last Taken Type Aspirin 325 mg PO QDAY #30 tablet 03/28/19 Unknown Rx AtorvaSTATin [Lipitor] 40 mg PO QHS #30 tab 03/28/19 Unknown Rx Cholecalciferol (Vitamin D3) 5,000 unit PO DAILY #60 capsule 03/28/19 Unknown Rx [Vitamin D3 5,000 UNIT] Docusate Sodium [Colace CAP] 100 mg PO BID #14 capsule 03/28/19 Unknown Rx Famotidine [Pepcid] 20 mg PO DAILY #30 tablet 03/28/19 Unknown Rx Nicotine [Habitrol] 21 mg TD DAILY #30 patch 03/28/19 Unknown Rx Terazosin HCl 5 mg PO HS #30 cap 03/28/19 Unknown Rx levETIRAcetam [Keppra TAB] 1,500 mg PO BID #180 tablet 03/28/19 Unknown Rx traZODone [Desyrel] 100 mg PO HS #14 tablet 03/28/19 Unknown Rx lamoTRIgine [LaMICtal] 100 mg PO BID #28 tab 05/29/19 Unknown Rx ED Review of Systems ROS: Stated complaint: HAND TREMORS Other details as noted in HPI Comment: All other systems reviewed and negative Constitutional: denies: chills, fever Eyes: denies: eye pain, vision change ENT: denies: ear pain, throat pain Respiratory: denies: cough, shortness of breath Cardiovascular: syncope. denies: chest pain, palpitations Gastrointestinal: denies: abdominal pain, vomiting Genitourinary: denies: dysuria, discharge Musculoskeletal: denies: joint swelling, arthralgia Skin: denies: rash, lesions Neurological: other (tremors). denies: weakness, numbness Physical Exam - Physical Exam Vital Signs: Vital Signs 05/29/19 04:51 Temperature 98.2 F Pulse Rate 100 H Respiratory 20 Rate Blood Pressure 158/98 O2 Sat by Pulse 100 Oximetry Physical Exam: GENERAL: The patient is well-developed well-nourished. HEENT: Normocephalic. Atraumatic. Patient has moist mucous membranes. EYES: Extraocular motions are intact. Pupils equal and reactive to light bilaterally. No nystagmus. NECK: Supple. Trachea is midline. CHEST/LUNGS: Clear to auscultation. There is no respiratory distress noted. HEART/CARDIOVASCULAR: Regular. There is mild to moderate tachycardia. There is no murmur. ABDOMEN: Abdomen is soft, nontender. Patient has normal bowel sounds. There is no abdominal distention. SKIN:Skin is warm and dry. . NEURO: The patient is awake, alert, and cooperative. The patient has no focal neurologic deficits. Normal speech. CN II - XII grossly intact. Patient has s ome pressured speech but no dysarthria. MUSCULOSKELETAL: There is no tenderness or deformity. There is no limitation range of motion. There is no evidence of acute injury. ED Course Vital Signs 05/29/19 04:51 Temperature 98.2 F Pulse Rate 100 H Respiratory 20 Rate Blood Pressure 158/98 O2 Sat by Pulse 100 Oximetry ED Medical Decision Making - Lab Data Result diagrams: 05/29/19 05:19 05/29/19 05:19 - EKG Data -: EKG Interpreted by Me EKG shows normal: sinus rhythm (PACs), axis, intervals, QRS complexes, ST-T waves Rate: tachycardia (106 bpm) - EKG Data When compared to previous EKG there are: no significant change Interpretation: unchanged when compared t (03/26/19) - Radiology Data Radiology results: report reviewed CT HEAD/BRAIN WO CON INDICATION / CLINICAL INFORMATION: Seizure versus syncope; tremors. TECHNIQUE: All CT scans at this location are performed using CT dose reduction for ALARA by means of automated exposure control. COMPARISON: 03/26/2019. FINDINGS: Focal area of encephalomalacia in the right posterior temporoparietal region is stable. No other focal lesion is seen. There is no evidence of mass effect or intracranial hemorrhage. I see no evidence of acute major vessel occlusion. The calvarium is intact. The paranasal sinuses and mastoid air cells are clear. No significant change has occurred since the prior study. IMPRESSION: 1. No acute abnormality or significant change. 2. Chronic area of encephalomalacia in the right temporoparietal region posteriorly is stable. Signer Name: Carlos Garza MD - Medical Decision Making This patient initially came in with a complaint of some tremors and then either a seizure or syncopal episode. Unsure whether or not this was witnessed but the patient says that he definitely lost consciousness and cannot remember what occurred prior to presentation. Initially the patient is awake, alert, oriented without any focal, motor or sensory deficits and his cranial nerves are intact. He does have some tachycardia but there is also some history of recent methamphetamine use. For this tachycardia, along with some mild pressured speech, I decided to give the patient some Ativan as he says he has not slept recently. This Ativan, and I'm assuming coming down from the methamphetamines, caused this patient to sleep for a long time in the emergency department. We continued with his workup including an EKG that did not show any signs of ST elevation [place]. His labs were mostly unremarkable except for urine drug screen p ositive for amphetamines. CT scan of the head without contrast did not show any bleed, shift, mass, ischemia, or any other acute process. Eventually the patient woke up from his slumber and once again was awake, alert and oriented. Patient still did have some mild tachycardia but the rest of his vital signs were stable throughout his ED course including being afebrile. He was seen ambulatory in the emergency department and appears stable. Patient was discharged home to follow-up with his primary care physician and instructed to return to the emergency Department with any worsening of his symptoms or any acute distress. - Differential Diagnosis methamphetamine abuse, seizures, vasovagal, TIA Critical Care Time: No Critical care attestation.: If time is entered above; I have spent that time in minutes in the direct care of this critically ill patient, excluding procedure time. ED Disposition Clinical Impression: Seizure disorder, Methamphetamine use Disposition: DC-01 TO HOME OR SELFCARE Is pt being admited?: No Condition: Stable Instructions: Methamphetamine Abuse (ED), Recurrent Seizures Adult (ED) Additional Instructions: Please follow up with your primary care physician in the next 2 days. Return to the emergency Department with any further seizure-like activity, worsening of your symptoms, or with any acute distress. Please try and stay away from any further methamphetamine or illicit drug use. Take your medications as prescribed. Prescriptions: lamoTRIgine [LaMICtal] 100 mg PO BID #28 tab Referrals: HIGINIO MEDRANO MD [Primary Care Provider] - 2-3 Days Time of Disposition: 14:04
[2019-05-29 06:42] LABS: Benzodiazepines Screen,Urine PRESUMPTIVE NEGATIVE; Cannabinoid Screen,Urine PRESUMPTIVE NEGATIVE; Cocaine Screen,Urine PRESUMPTIVE NEGATIVE; Methadone Screen,Urine PRESUMPTIVE NEGATIVE; Opiate Screen,Urine PRESUMPTIVE NEGATIVE
--- NOTE | 2019-05-29 07:31 | Cat Scan Report ---
CT HEAD/BRAIN WO CON INDICATION / CLINICAL INFORMATION: Seizure versus syncope; tremors. TECHNIQUE: All CT scans at this location are performed using CT dose reduction for ALARA by means of automated e xposure control. COMPARISON: 03/26/2019. FINDINGS: Focal area of encephalomalacia in the right posterior temporoparietal region is stable. No other foca l lesion is seen. There is no evidence of mass effect or intracranial hemorrhage. I see no evidence o f acute major vessel occlusion. The calvarium is intact. The paranasal sinuses and mastoid air cells are clear. No significant change has occurred since the prior study. IMPRESSION: 1. No acute abnormality or significant change. 2. Chronic area of encephalomalacia in the right temporoparietal region posteriorly is stable. Signer Name: Carlos Garza MD Signed: 05/29/2019 7:27 AM Workstation Name: [id number]
[2019-05-29 07:36] LABS: Amphetamine Screen,Urine PRESUMPTIVE POSITIVE
[2019-05-29 15:35] VITALS: BP 125/85
== END 2019-05-29 15:31 | disposition home or self-care (01) ==
LOC: ED 04:28
DX: G40.909 Epilepsy, unspecified, not intractable, without status epilepticus (principal); I10 Essential (primary) hypertension; M19.90 Unspecified osteoarthritis, unspecified site; G89.29 Other chronic pain; F17.200 Nicotine dependence, unspecified, uncomplicated; Z86.73 Personal history of transient ischemic attack (TIA), and cerebral infarction without residual deficits; Z79.899 Other long term (current) drug therapy; Z88.8 Allergy status to other drugs, medicaments and biological substances; Z88.1 Allergy status to other antibiotic agents
CPT/HCPCS: 36415; 70450; 80053; 80307; 82140; 82550; 83735; 84484; 85027; 85610; 85730; 93005; 93010; 96365; 96375; 99284; J1953; J2060; 80320; G0480

== ENCOUNTER 2021-10-05 15:01 | Emergency (ER) | payer SELFPAY ==
[2021-10-05 15:59] VITALS: BP 169/117
[2021-10-05 16:48] LABS: Basophils # (Auto) 0.1 K/mm3 (0.0-0.1); Eosinophils # (Auto) 0.2 K/mm3 (0.0-0.4); Eosinophils % (Auto) 2.7 % (0.0-4.3); Hematocrit 42.7 % (35.5-45.6); Hemoglobin 14.1 gm/dl (11.8-15.2); Lymphocytes # (Auto) 1.4 K/mm3 (1.2-5.4); Mean Corpuscular HGB Conc 33 % (32-34); Mean Corpuscular Volume 90 fl (84-94); Monocytes # (Auto) 0.5 K/mm3 (0.0-0.8); Monocytes % (Auto) 6.3 % (0.0-7.3); Platelet Count 215 K/mm3 (140-440); Red Blood Count 4.78 M/mm3 (3.65-5.03); Red Cell Distribution Width 14.2 % (13.2-15.2)
[2021-10-05 17:03] LABS: Alanine Aminotransferase 15 units/L (7-56); Albumin 4.7 g/dL (3.9-5); BUN/Creatinine Ratio 24; Blood Urea Nitrogen 26 mg/dL (9-20); Calcium 9.2 mg/dL (8.4-10.2); Hemolysis Index 52
== END 2021-10-05 19:30 | disposition left against medical advice (07) ==
LOC: ED 15:01
DX: R41.82 Altered mental status, unspecified (principal); Z53.21 Procedure and treatment not carried out due to patient leaving prior to being seen by health care provider
CPT/HCPCS: 36415; 80053; 80320; 85025; G0480

== ENCOUNTER 2021-10-05 20:36 | Emergency (ER) | payer SELFPAY ==
[2021-10-05] MEDS ORDERED: ZIPRASIDONE MESYLATE 20 MG VIAL IM ONE (22:57)
[2021-10-05] MEDS ORDERED: LORazepam 2 MG/ML VIAL ONE ×2 (22:57→23:44)
[2021-10-05] MEDS ORDERED: HALOPERIDOL LACTATE 5 MG/1 ML INJ ONE (22:57)
[2021-10-05] MEDS ORDERED: LORazepam 2 MG/ML VIAL IM ONE (23:45)
[2021-10-05 23:54] LABS: Basophils % (Auto) 0.5 % (0.0-1.8); Eosinophils # (Auto) 0.2 K/mm3 (0.0-0.4); Eosinophils % (Auto) 3.1 % (0.0-4.3); Hematocrit 40.2 % (35.5-45.6); Hemoglobin 13.3 gm/dl (11.8-15.2); Lymphocytes # (Auto) 1.4 K/mm3 (1.2-5.4); Lymphocytes % (Auto) 18.6 % (13.4-35.0); Mean Corpuscular HGB Conc 33 % (32-34); Mean Corpuscular Volume 89 fl (84-94); Monocytes # (Auto) 0.5 K/mm3 (0.0-0.8); Monocytes % (Auto) 7.2 % (0.0-7.3); Platelet Count 194 K/mm3 (140-440); Red Blood Count 4.53 M/mm3 (3.65-5.03); Red Cell Distribution Width 14.3 % (13.2-15.2)
[2021-10-06 00:24] LABS: BUN/Creatinine Ratio 19; Blood Urea Nitrogen 23 mg/dL (9-20); Calcium 8.9 mg/dL (8.4-10.2); Hemolysis Index 13
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
[2021-10-06] MEDS ORDERED: ZIPRASIDONE MESYLATE 20 MG VIAL IM ONE (11:47)
--- NOTE | 2021-10-06 12:16 | Event Note ---
Date: 10/06/21 The patient had normal labs and is currently being evaluated by psychiatry. He has been combative and required 1 dose of Geodon just prior to my evaluation. He is pacing around the room. He is clinically otherwise stable. He will be kept in psychiatric [facility] for continued treatment of his acute psychosis.
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
[2021-10-06] MEDS ORDERED: ZIPRASIDONE MESYLATE 20 MG VIAL IM PRN (12:37)
[2021-10-06] MEDS: DIVALPROEX DR 125 MG TAB PO SCH ×2 (14:58→22:49)
[2021-10-06] MEDS: risperiDONE 0.25 MG TAB PO SCH ×2 (14:58→22:49)
[2021-10-06] MEDS: NICOTINE 21 MG/24 HR PATCH TD SCH (18:58)
--- NOTE | 2021-10-06 21:51 | Event Note ---
Date: 10/06/21 The patient was evaluated in the emergency department for symptoms described in the history of present illness. He/she was evaluated in the context of the global COVID-19 pandemic, which necessitated consideration that the patient might be at risk for infection with the virus that causes COVID-19. Institutional protocols and algorithms that pertain to the evaluation of patients at risk for COVID-19 are in a state of rapid change based on information released by regulatory bodies including the CDC and federal and state organizations. These policies and algorithms were followed during the patient's care in the emergency department. Please note that these policies, procedures and recommendations changed on a rapid basis. [id number] evaluation performed. Patient required initiation of seclusion, yelling, screaming, agitated behavior, not responding to de-escalation techniques or show of force. Patient is awake, yelling nonsensically, breathing, in no acute distress, vital signs unremarkable. He has been ordered for as needed medications which have already been administered previously, without adverse event or consequence. I see that a COVID swab has not been ordered or resulted, so I will order a COVID swab for the day team to follow-up on, to facilitate psychiatric placement and disposition. Home medications may be continued as well. Vital Signs 10/05/21 10/06/21 10/06/21 22:14 08:45 09:05 Temperature 98.7 F 98.2 F Pulse Rate 121 H 88 Respiratory 18 20 Rate Blood Pressure 158/99 Blood Pressure 118/80 [Left] O2 Sat by Pulse 97 98 99 Oximetry 10/06/21 21:40 Temperature Pulse Rate Respiratory Rate Blood Pressure Blood Pressure [Left] O2 Sat by Pulse 98 Oximetry Lab Results 10/05/21 10/05/21 10/05/21 Range/Units 23:43 23:43 23:43 WBC 7.4 (4.5-11.0) K/mm3 RBC 4.53 (3.65-5.03) M/mm3 Hgb 13.3 (11.8-15.2) gm/dl Hct 40.2 (35.5-45.6) % MCV 89 (84-94) fl MCH 29 (28-32) pg MCHC 33 (32-34) % RDW 14.3 (13.2-15.2) % Plt Count 194 (140-440) K/mm3 Lymph % (Auto) 18.6 (13.4-35.0) % Rowan % (Auto) 7.2 (0.0-7.3) % Eos % (Auto) 3.1 (0.0-4.3) % Baso % (Auto) 0.5 (0.0-1.8) % Lymph # (Auto) 1.4 (1.2-5.4) K/mm3 Rowan # (Auto) 0.5 (0.0-0.8) K/mm3 Eos # (Auto) 0.2 (0.0-0.4) K/mm3 Baso # (Auto) 0.0 (0.0-0.1) K/mm3 Seg Neutrophils % 70.6 H (40.0-70.0) % Seg Neutrophils # 5.2 (1.8-7.7) K/mm3 Sodium 141 (137-145) mmol/L Potassium 4.1 (3.6-5.0) mmol/L Chloride 104.4 (98-107) mmol/L Carbon Dioxide 21 L (22-30) mmol/L Anion Gap 20 mmol/L BUN 23 H (9-20) mg/dL Creatinine 1.2 (0.8-1.3) mg/dL Estimated GFR > 60 ml/min BUN/Creatinine Ratio 19 % Glucose 136 H (75-100) mg/dL Calcium 8.9 (8.4-10.2) mg/dL Salicylates < 0.3 L (2.8-20.0) mg/dL Acetaminophen (10.0-30.0) ug/mL 10/05/ Range/Units 23:43 WBC (4.5-11.0) K/mm3 RBC (3.65-5.03) M/mm3 Hgb (11.8-15.2) gm/dl Hct (35.5-45.6) % MCV (84-94) fl MCH (28-32) pg MCHC (32-34) % RDW (13.2-15.2) % Plt Count (140-440) K/mm3 Lymph % (Auto) (13.4-35.0) % Rowan % (Auto) (0.0-7.3) % Eos % (Auto) (0.0-4.3) % Baso % (Auto) (0.0-1.8) % Lymph # (Auto) (1.2-5.4) K/mm3 Rowan # (Auto) (0.0-0.8) K/mm3 Eos # (Auto) (0.0-0.4) K/mm3 Baso # (Auto) (0.0-0.1) K/mm3 Seg Neutrophils % (40.0-70.0) % Seg Neutrophils # (1.8-7.7) K/mm3 Sodium (137-145) mmol/L Potassium (3.6-5.0) mmol/L Chloride (98-107) mmol/L Carbon Dioxide (22-30) mmol/L Anion Gap mmol/L BUN (9-20) mg/dL Creatinine (0.8-1.3) mg/dL Estimated GFR ml/min BUN/Creatinine Ratio % Glucose (75-100) mg/dL Calcium (8.4-10.2) mg/dL Salicylates (2.8-20.0) mg/dL Acetaminophen 5.0 L (10.0-30.0) ug/mL
[2021-10-06] MEDS: levETIRAcetam 500 MG TAB PO SCH (22:48)
[2021-10-06] MEDS: lamoTRIgine 100 MG TAB PO SCH (22:48)
[2021-10-06] MEDS: traZODone 100 MG TAB PO SCH (22:49)
[2021-10-07] MEDS: NICOTINE 21 MG/24 HR PATCH TD SCH (09:43)
[2021-10-07] MEDS: DIVALPROEX DR 125 MG TAB PO SCH ×2 (09:43→22:00)
[2021-10-07] MEDS: ASPIRIN EC 81 MG TAB PO SCH (09:46)
[2021-10-07] MEDS: levETIRAcetam 500 MG TAB PO SCH ×2 (09:47→22:00)
[2021-10-07] MEDS: lamoTRIgine 100 MG TAB PO SCH ×2 (09:47→22:00)
[2021-10-07] MEDS: risperiDONE 0.25 MG TAB PO SCH ×2 (09:47→22:00)
[2021-10-07] MEDS: FAMOTIDINE 20 MG TAB PO SCH (09:47)
[2021-10-07] MEDS ORDERED: CHOLECALCIFEROL (VIT D3) 5,000 UNIT TAB PO SCH (10:00)
--- NOTE | 2021-10-07 11:23 | Progress Note ---
Subjective - Reason for Consult Consult date: 10/07/21 Reason for consult: mental health evaluation - Chief Complaint Chief complaint: The patient was seen this morning. The patient presents with disorganized thoughts. He states he does not know why he came to the hospital. The patient was seen pacing and dancing. REVIEW OF SYSTEMS Constitutional: Negative for weight loss ENT: Negative for stridor Respiratory: Negative for cough or hemoptysis All other systems reviewed and are negative MENTAL STATUS EXAMINATION General Appearance: Dressed appropriately Behavior: calm and cooperative Mood: okay Affect and affective range: congruent with mood Thought Process: circumstantial, flight of ideas Thought content: None Speech: hyperverbal Suicidal Ideation: Denies Homicidal Ideation: Denies Hallucinations: Denies Delusions: None elicited Insight and Judgment: Limited insight and judgment Memory: Limited Attention: attentive Orientation: Alert, oriented Assessment Bipolar Disorder Treatment Plan 1013 Risperidone 0.25mg po BID Vistaril 50mg po BID prn anxiety Trazodone 50mg qhs Depakote DR 125mg po BID Medical: Per primary Sitter: Defer to primary Disposition: Recommend acute psychiatric inpatient treatment Will follow. Thanks Case staffed with Dr. Alegre Mental Status Exam - Vital signs Last Vital Signs Temp 98.3 F 10/07/21 04:37 Pulse 76 10/07/21 04:37 Resp 16 10/07/21 04:37 BP 135/88 10/07/21 04:37 Pulse Ox 98 10/07/21 04:37
--- NOTE | 2021-10-07 11:46 | Event Note ---
Date: 10/07/21 The patient has been much more calm this morning. He currently denies any hallucinations nor suicidal or homicidal ideations. On my mental status exam the patient is AO thymic with congruent mood. His thought pattern is relevant and coherent. He does not seem under the influence of any psychoactive substances and does not seem to be hallucinating. We will follow patient and proceed as per psychiatry recommendations.
[2021-10-07 21:14] VITALS: BP 127/76
[2021-10-07] MEDS: traZODone 100 MG TAB PO SCH (22:00)
[2021-10-08] MEDS: DIVALPROEX DR 125 MG TAB PO SCH (10:31)
[2021-10-08] MEDS: levETIRAcetam 500 MG TAB PO SCH (10:31)
[2021-10-08] MEDS: ASPIRIN EC 81 MG TAB PO SCH (10:31)
[2021-10-08] MEDS: lamoTRIgine 100 MG TAB PO SCH (10:31)
[2021-10-08] MEDS: FAMOTIDINE 20 MG TAB PO SCH (10:31)
[2021-10-08] MEDS: risperiDONE 0.25 MG TAB PO SCH (10:31)
[2021-10-08] MEDS: NICOTINE 21 MG/24 HR PATCH TD SCH (10:31)
--- NOTE | 2021-10-08 10:51 | Progress Note ---
Subjective - Reason for Consult Consult date: 10/08/21 Reason for consult: Mental health evaluation - Chief Complaint Chief complaint: The patient was seen this morning. The patient is calmer and lucid today. He reports doing well. The patient denies any current suicidal/homicidal ideation and denies hallucinations. REVIEW OF SYSTEMS Constitutional: Negative for weight loss ENT: Negative for stridor Respiratory: Negative for cough or hemoptysis All other systems reviewed and are negative MENTAL STATUS EXAMINATION General Appearance: Dressed appropriately Behavior: calm and cooperative Mood: okay Affect and affective range: congruent with mood Thought Process: Goal directed Thought content: Reality oriented Speech: Normal Suicidal Ideation: Denies Homicidal Ideation: Denies Hallucinations: Denies Delusions: None elicited Insight and Judgment: Limited insight and judgment Memory: Limited Attention: attentive Orientation: Alert, oriented Assessment Bipolar Disorder Treatment Plan DC 1013 Risperidone 0.25mg po BID Vistaril 50mg po BID prn anxiety Trazodone 50mg qhs Depakote DR 125mg po BID Medical: Per primary Sitter: Defer to primary Disposition: Do not recommend acute psychiatric inpatient treatment. Operations Welder will provide patient with psychiatric outpatient resources. Will sign off. Thanks Case staffed with Dr. Alegre Mental Status Exam - Vital signs Last Vital Signs Temp 98.4 F 10/07/21 21:13 Pulse 88 10/07/21 21:13 Resp 16 10/07/21 21:13 BP 127/76 10/07/21 21:13 Pulse Ox 97 10/07/21 21:13
--- NOTE | 2021-10-08 11:26 | Event Note ---
Date: 10/08/21 The patient has been resting comfortably and taking his medications voluntarily. The patient is alert active and oriented x3 and making good eye contact. The mood is euethymic with congruent affect. The patient does not seem under the influence of any psychoactive substances. The thought pattern is relevant and coherent. The patient denies suicidal ideations. We will continue to follow.
== END 2021-10-08 14:07 ==
LOC: EEVIPCON 20:36 → ED 20:36
DX: F29 Unspecified psychosis not due to a substance or known physiological condition (principal); Z20.822 Contact with and (suspected) exposure to COVID-19; F30.9 Manic episode, unspecified; I10 Essential (primary) hypertension; Z88.0 Allergy status to penicillin; Z88.5 Allergy status to narcotic agent
CPT/HCPCS: 36415; 80048; 85025; 96372; 99284; J1630; J2060; J3486; U0003; 80320; G0480